=== PATIENT | female | born 1995 | race African-American/Black ===

== ENCOUNTER 2021-05-27 00:20 | Day surgery (SDC) | payer OTHER, SELFPAY ==
[2021-05-19 14:46] VITALS: BMI 38.0
--- NOTE | 2021-05-19 14:53 | PC.NURSE ---
Report to the Outpatient Waiting Room, entrance under the green pavilion located off [facility], at time 0600 on date 05/20/21. OR Time: 0730. - You and your visitor will be asked a series of questions to screen for COVID 19 for your protection. - A mask is required within the hospital. One visitor will be allowed to accompany the patient into the hospital. Patients visitor will be instructed to remain with patient at all times or leave the building. We will allow the visitor to come back to the postoperative area when patient is ready. Preoperative COVID Testing Requirements: No COVID Test needed if: (proof is required; if not received patient will have Rapid Test prior to entry) - Patient has received COVID Vaccine at least 14 days prior to procedure date or - Patient has positive COVID test result within last 90 days of surgery date. COVID Test needed if above criteria is not met Patients may have clear liquids (water, carbonated beverages, clear teas, apple juice) until 3 hours prior to surgery with a maximum of 20 ounces. - No food from midnight until time of surgery Take the following medications with a SIP of water the morning of surgery: NONE Medications to discontinue per physician: N/A Date to take last dose: N/A Please no make-up, nail sammarinese, hairspray, perfume, deodorant, or body powder the day of surgery. No jewelry (including any body piercings) or valuables the day of surgery, leave them at home. Please take a shower or bath the night before, or the morning of, surgery with an antibacterial soap. Wear comfortable, loose fitting clothing. - Jewelry must be removed prior to entering the operating room. Rings and piercings that are not removed may be cut off. - The hospital will not accept responsibility for valuables. - Please leave all valuables, including medications, at home the day of surgery. If you are going home after surgery, a licensed pole truck driver must drive you home. - NO public transportation without another adult. - We recommend that an adult stay with you for 24 hours following discharge. - We also recommend that you do not drive, make important decision, drink alcoholic beverages, or take any drugs that were not prescribed by your health care provider for at least 24 hours after your discharge time. Follow any additional instructions given to you from your surgeon. Telephone instructions given to LUIS SMITH and asked if any additional questions and then verbalized understanding. Patient advised to call surgeon office or pre surgery nurse liaison [phone] if any additional questions.
--- NOTE | 2021-05-20 06:32 | SUR.PREOP ---
CALLED PT, NO ANSWER, UNABLE TO LEAVE VM, MAILBOX NOT RECEIVING MESSAGES. PT TO BE HERE AT 0600 FOR 0730 CASE. CALLED PT'S MOTHER, KEHINDE, SHE HAS NO OTHER NUMBER FOR PT.
--- NOTE | 2021-05-25 10:57 | PC.NURSE ---
Report to the Outpatient Waiting Room, entrance under the green pavilion located off [facility], at time 0600 on date __05/27/21 . OR Time: __729 . - You and your visitor will be asked a series of questions to screen for COVID 19 for your protection. - A mask is required within the hospital. Preoperative COVID Testing Requirements: No COVID Test needed if: (proof is required; if not received patient will have Rapid Test prior to entry) - Patient has received COVID Vaccine at least 14 days prior to procedure date or - Patient has positive COVID test result within last 90 days of surgery date. COVID Test needed if above criteria is not met Patients may have clear liquids (water, carbonated beverages, clear teas, apple juice) until 3 hours prior to surgery with a maximum of 20 ounces. - No food from midnight until time of surgery Take the following medications with a SIP of water the morning of surgery: NONE Medications to discontinue per physician NONE Date to take last dose Please no make-up, nail georgian, hairspray, perfume, deodorant, or body powder the day of surgery. No jewelry (including any body piercings) or valuables the day of surgery, leave them at home. Please take a shower or bath the night before, or the morning of, surgery with an antibacterial soap. Wear comfortable, loose fitting clothing. Children are encouraged to wear pajamas. - Jewelry must be removed prior to entering the operating room. Rings and piercings that are not removed may be cut off. - The hospital will not accept responsibility for valuables. - Please leave all valuables, including medications, at home the day of surgery. If you are going home after surgery, a licensed warehouse associate driver must drive you home. - NO public transportation without another adult. - We recommend that an adult stay with you for 24 hours following discharge. - We also recommend that you do not drive, make important decision, drink alcoholic beverages, or take any drugs that were not prescribed by your health care provider for at least 24 hours after your discharge time. One visitor will be allowed to accompany the patient into the hospital. Patients visitor will be instructed to remain with patient at all times or leave the building. We will allow the visitor to come back to the postoperative area when patient is ready. Follow any additional instructions given to you from your surgeon. Telephone instructions given to __PATIENT and asked if any additional questions and then verbalized understanding. Patient advised to call surgeon office or pre surgery nurse liaison [phone] if any additional questions.
[2021-05-25 11:01] VITALS: BMI 38.0
--- NOTE | 2021-05-25 11:05 | PC.NURSE ---
PT STATES NO CHANGE IN HEALTH HX SINCE LAST INTERVIEW ON 05/19/21
--- NOTE | 2021-05-27 08:50 | P.HP_ITS ---
H&P: HPI History of Present Illness Date/Time: 05/27/21 08:50 Chief Complaint: retained POC Narrative: Eneida is a 25yo who had a medical at [facility] 6 weeks ago and has had heavy persistent vaginal bleeding since. US last week showed retained POC. She no showed a D and C last tuesday, but reported her bleeding has remained the same. [facility] Social History Social History Smoking status: Never smoker Additional smoking assessment comments: HOOKA Alcohol intake: current Drinks per week: 4 Substance use: former Substance use type: marijuana Last use: APR 11, 2021 SMOKED DAILY Living arrangements: alone Spiritual care concerns: No Meds Home Medications and Allergies Home Medications Medication Instructions Recorded Confirmed Type phentermine 37.5 mg PO DAILY 05/25/21 05/25/21 History Allergies Allergy/AdvReac Type Severity Reaction Status Date / Time No Known Allergies Allergy Unverified 05/25/21 10:51 Assessment and Plan Assessment and plan (1) Retained products of conception after induced termination of : Code(s): O07.4 - Failed attempted termination of without complication Status: Acute Assessment and Plan: D and C for retained POC after medical doxycycline IV Hgb was stable. Pt has been consented of RBA. will proceed.
--- NOTE | 2021-05-27 13:11 | WPDANESEPPF ---
Anes - Initial Pre Proc Eval Procedure: Operation Date: 05/27/21 14:30 Proposed Procedures p Suction Dilatation and Curettage - Elsie Finney MD Date/Time: 05/27/21 13:11 Surgeon: Elsie Finney MD Pre Op Diagnosis: retained products of conception Patient Data Age: 25 Gender: F Height: 1.73 m Weight: 113.4 kg Allergies Allergy/AdvReac Type Severity Reaction Status Date / Time No Known Allergies Allergy Verified 05/27/21 13:12 Home Medications Medication Instructions Recorded Confirmed Type phentermine 37.5 mg PO DAILY 05/25/21 05/25/21 History Patient hx anesthesia problems: none Family hx anesthesia problems: none Results Review: All pre-operative results and documents have been reviewed as part of the pre-operative evaluation. [facility] Social History Social History Smoking status: Never smoker Additional smoking assessment comments: MCKENNA Alcohol intake: current Drinks per week: 4 Substance use: former Substance use type: marijuana Last use: APR 11, 2021 SMOKED DAILY Living arrangements: alone Spiritual care concerns: No Anes - Eval Final PreProcedure Day of Procedure 05/27/21 13:11 Patient weight: obese Heart: regular rate and rhythm Lungs: clear to auscultation and normal air movement Airway: Mallampati scale class II Neurological: alert and oriented Last oral intake: >/= 8 hours ASA classification: II Emergent: no Anesthetic plan: proceed Anesthesia type and monitoring: general GIVS and standard monitoring Results Review: All pre-operative results and documents have been reviewed as part of the pre-operative evaluation. Informed Consent: The patient's anesthetic plan and its attendant risks and benefits were discussed with the patient/family/POA. Questions were solicited and answers provided to the satisfaction of the patient/family/POA.
[2021-05-27] MEDS: LACTATED RINGERS 1,000 ML 30 ML IV CONT (13:30)
[2021-05-27 13:36] VITALS: BP 100/50; PULSE 128; RESP 18; TEMP 36.5; O2SAT 100; BMI 36.8
[2021-05-27] MEDS: ACETAMINOPHEN 500 MG TABLET 1000 MG PO (13:40)
--- NOTE | 2021-05-27 13:48 | SUR.PREOP ---
1330; SPOKE TO DR HUMPHRIES, PT SMELLS OF MARIJUANA, HEAVILY, ALTHOUGH DENIES RECREATIONAL DRUG USE. HEART RATE 128, DR HUMPHRIES NOTIFIED. BP 100/50. PT STATES SHE IS NERVOUS. 1340; PT STATES SHE CANNOT GET HER VAGINAL PIERCING OUT. DOES NOT WANT TO SIGN JEWELRY WAIVER, WILL SPEAK TO DR LIN WHEN SHE ARRIVES
--- NOTE | 2021-05-27 14:35 | WPDHPUPDATE1 ---
History and Physical Update Update Date/Time: 05/27/21 14:35 History and Physical has been reviewed, including an updated exam of the patient. There are NO changes in the patient's condition. SInce last week when D and C was first scheduled, she has continued to have some days of no bleeding and some days of heavy bleeding. Risks, benefits, and alternatives have been discussed and questions answered. Patient agrees to proceed with procedure.
[2021-05-27] MEDS: DOXYCYCLINE 100 MG/NS 100 ML 100 MG/100 ML BAG IVPB (14:43)
--- NOTE | 2021-05-27 14:48 | SUR.PREOP ---
1435; DR LIN SPOKE TO . [facility] WAIVER SIGNED.
[2021-05-27] MEDS: BUPIVACAINE/EPINEPHRINE 0.25% 10 ML VIAL INFILTRATE (14:49)
--- NOTE | 2021-05-27 14:51 | SUR.PREOP ---
1440; NOTIFIED DR LIN OF PT'S SIGNING IDPH PAPER FOR HOME DISPOSITION
[2021-05-27] MEDS: METHYLERGONOVINE MALEATE 0.2 MG/ML VIAL IM (15:00)
--- NOTE | 2021-05-27 15:09 | W.PM.PROC2 ---
Procedure Note - Detailed Date of Procedure 05/27/21 Pre-op Diagnosis retained products of conception Post-op Diagnosis same Procedure Performed suction D and C Surgeon Elsie Finney MD Anesthesia MAC Description of Procedure The patient was taken to the OR and placed in supine position in dorsal lithotomy. She received MAC anesthesia and doxycycline. She was prepped and draped in normal fashion. A speculum was placed and the cervix was grasped with a single tooth tenaculum. A paracervical block was placed with 10cc 0.25% marcaine with epinephrine. The cervix was sequentially dilated to 8 mills. The suction was tested and then the suction catheter was inserted into the uterine cavity. Several passes were made until no further products of conception were obtained. The tenaculum was removed and hemostasis was obtained with pressure and monsel's solution. Small bleeding noted from the os, and methergine was given. The speculum was removed. The patient tolerated the procedure well and was taken to the recovery room in stable condition. Drains No Packing No Pathology yes Complications No immediate complications Condition stable Disposition same day
[2021-05-27 15:11] VITALS: BP 112/76; PULSE 86; RESP 16; O2SAT 98
[2021-05-27 15:40] VITALS: BP 131/83; PULSE 101; RESP 16; O2SAT 100
[2021-05-27 16:00] VITALS: BP 131/92; PULSE 89; RESP 16
== END 2021-05-27 16:16 | disposition home or self-care (01) ==
PROVIDERS: Visit Provider Obstetrics & Gynecology
PROC: (CPT 59812; principal; 2021-05-27 14:30)
DX: O07.4 Failed attempted termination of pregnancy without complication (principal)
CPT/HCPCS: 59812; 36415; 85461; 88305; A9270; J2001; J2210; J2250; J2405; J2704; J3010; J7120

== ENCOUNTER 2022-03-07 13:30 | Emergency (ER) | payer OTHER, SELFPAY ==
[2022-03-07 14:43] VITALS: BP 108/69; PULSE 78; RESP 18; TEMP 36.6; O2SAT 100
--- NOTE | 2022-03-07 15:22 | ED.FEMALEGU ---
HPI - Female Genitourinary General Chief complaint: Urogenital-Female Stated complaint: UTI Time Seen by Provider: 03/07/22 15:22 Source: patient Mode of arrival: ambulatory Limitations: no limitations History of Present Illness HPI Narrative: 26-year-old female presents with complaint lower abdominal pressure and distension, urinary frequency for 3 days. Afebrile. Intermittent dysuria. Denies nausea vomiting diarrhea. Reports this is her 1st urinary tract infection. No concern for . All systems reviewed and negative except as noted above. Related Data Home Medications Medication Instructions Recorded Confirmed Iud 03/07/22 Allergies Allergy/AdvReac Type Severity Reaction Status Date / Time No Known Allergies Allergy Verified 03/07/22 14:51 Review of Systems Review of Systems: CONSTITUTIONAL: Denies fever, chills, or sweats. EYES: Denies visual changes, redness, or discharge. ENT: Denies rhinorrhea, congestion, sore throat, or otalgia. CARDIOVASCULAR: Denies chest pain, palpitations, or edema. RESPIRATORY: Denies cough or dyspnea. GASTROINTESTINAL: Denies abdominal pain, nausea, vomiting, or diarrhea. GENITOURINARY: Reports dysuria, pressure and distention. Denies hematuria. SKIN: Denies rash or itching. MUSCULOSKELETAL: Denies back pain, joint pain, or myalgia. NEUROLOGIC: Denies headache, numbness, or weakness. PSYCHIATRIC: Denies anxiety or depression. All other systems reviewed are negative, except as documented in HPI. 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 There is no relevant family history pertinent to the presenting complaint. Exam Narrative: GENERAL: This is a well-nourished, well-developed patient, in no apparent distress. HEAD: normocephalic, atraumatic. EYES: PERRL. Sclera clear/white. Vision is grossly intact. EARS: External ears normal NOSE: External nose normal NECK: Neck supple, non-tender without lymphadenopathy, masses or thyromegaly. CARDIOVASCULAR: Regular rate and rhythm without murmurs, gallops, or rubs. RESPIRATORY: Clear to auscultation. Breath sounds equal bilaterally. No wheezes, rales, or rhonchi. SKIN: warm, Dry, intact with no suspicious lesions or rash, good texture and turgor. NEURO: awake, alert, and oriented to person, place and time. There were no obvious focal neurologic abnormalities. EXTREMITIES: No joint tenderness, effusion, or edema noted. Course Course Level of Care: Express Care Visit Vital Signs Vital signs: Vital Signs Temperature 36.6 C 03/07/22 14:43 Pulse Rate 78 03/07/22 14:43 Respiratory Rate 18 03/07/22 14:43 Blood Pressure 108/69 03/07/22 14:43 Pulse Oximetry 100 03/07/22 14:43 Oxygen Delivery Room Air 03/07/22 14:43 Temperature 36.6 C 03/07/22 14:43 Pulse Rate 78 03/07/22 14:43 Respiratory Rate 18 03/07/22 14:43 Blood Pressure 108/69 03/07/22 14:43 Pulse Oximetry 100 03/07/22 14:43 Oxygen Delivery Room Air 03/07/22 14:43 reviewed MDM - Female Genitourinary MDM Narrative Medical decision making narrative: Patient is awar
== END 2022-03-07 15:34 | disposition home or self-care (01) ==
PROVIDERS: Emergency Provider Nurse Practitioner Family
DX: N39.0 Urinary tract infection, site not specified (principal)
CPT/HCPCS: 81003; 87077; 87086; 87186; 99213; G0463

== ENCOUNTER 2024-04-11 03:24 | Inpatient (IN) | payer OTHER, SELFPAY ==
[2024-04-11] VITALS (71 sets, daily range): BP systolic 95–145; BP diastolic 58–99; PULSE 83–119; RESP 18; TEMP 36.8–36.9; O2SAT 97–100; BMI 45.2
[2024-04-11] MEDS: LACTATED RINGERS 1,000 ML 500 ML IV CONT (03:50)
[2024-04-11] MEDS: BETAMETHASONE SOD PHOS/ACETATE 30 MG/5 ML VIAL 12 MG IM (04:01)
[2024-04-11] MEDS: LACTATED RINGERS 1,000 ML 75 ML IV CONT (04:11)
[2024-04-11] MEDS: MAGNESIUM SULF 6 GM/WATER150ML 6 GM/150 ML BAG IVPB (04:11)
[2024-04-11] MEDS: LACTATED RINGERS 1,000 ML 125 ML IV CONT (04:30)
[2024-04-11] MEDS: AMPICILLIN 2 GM/NS 100 ML 2 GM/100 ML BAG IVPB (04:35)
--- NOTE | 2024-04-11 04:39 | P.HP_ITS ---
H&P: HPI History of Present Illness Date/Time: 04/11/24 04:39 Chief Complaint: labor Narrative: Patient is a 28 year old at 25w2d who presents for labor after transfer from outside hospital. She reports contractions starting at 1900 tonight, no inciting factors. She then reports leakage of fluid while being evaluated in the ER around midnight. She denies vaginal bleeding. She reports de creased movement. Per outside hospital report, she was not dilated prior to transfer. On admission, FHR was category II with recurrent variable decelerations. SVE 3.5cm dilated. RomPlus negative however oligohydramnios noted on bedside ultrasound. Cephalic presentation. Her has been complicated by possible CPAM, found on US at 24 weeks. 2.5x2.5x2.4cm cystic formation in the left lung/thorax visualized. Referral to [facility] sent however patient has not yet attending. No hx of delivery/labor. Review of Systems Review of Systems: All systems reviewed & are unremarkable except as noted in HPI and below PMFSH Past Medical History Medical History Encounter for removal of intrauterine contraceptive device Surgical History Surgical History H/O dilation and curettage 2 Family History Family History Mother Hypertension Grandparent Lung cancer Social History Social History Smoking status: Never smoker Additional smoking assessment comments: HOOKA Alcohol intake: current Drinks per week: 4 Substance use: former Substance use type: marijuana Last use: APR 11, 2021 SMOKED DAILY Do You Feel Safe in your Home?: Yes Lack of Transportation: No Lack of Food: Never True Current Housing: I Have Housing Concerned About Future Housing: No Difficulty Paying Gas/Electric Bills: No Difficulty Paying for Meds: No Currently Unemployed: YES Education: High School Diploma/GED Difficulty w/ Childcare or Family Care: YES Living arrangements: with family Occupation/Education: unemployed Gender identity (if verbalized by the patient): Female Sexual Orientation (if Verbalized by the Patient): Straight or Heterosexual Spiritual care concerns: No Meds Home Medications and Allergies Home Medications ?Medication ?Instructions ?Recorded ?Confirmed ?Type acyclovir 400 mg tablet 400 mg PO TID 5 days #15 tabs 12/27/23 12/27/23 Rx metronidazole 500 mg tablet 500 mg PO Q12H #14 tabs 12/27/23 12/27/23 Rx docosahexaenoic acid 200 mg 200 mg PO DAILY #90 caps 12/29/23 12/29/23 Rx capsule ( DHA) Allergies Allergy/AdvReac Type Severity Reaction Status Date / Time No Known Allergies Allergy Verified 12/27/23 11:08 Vital Signs Vital Signs - 24 hr 04/11/24 03:35 04/11/24 03:36 04/11/24 03:40 Pulse Rate 87 Blood Pressure 124/79 Pulse Oximetry 100 100 04/11/24 03:45 04/11/24 03:50 04/11/24 03:55 Pulse Rate Blood Pressure Pulse Oximetry 100 100 100 04/11/24 04:00 04/11/24 04:02 04/11/24 04:12 Pulse Rate 103 H Blood Pressure 145/99 H Pulse Oximetry 99 100 04/11/24 04:16 04/11/24 04:17 04/11/24 04:22 Pulse Rate 98 Blood Pressure 131/74 Pulse Oximetry 100 97 04/11/24 04:27 04/11/24 04:32 04/11/24 04:37 Pulse Rate Blood Pressure Pulse Oximetry 99 99 100 Exam Const: General: in distress moderate (with contractions) HENMT: Mouth: Yes moist mucous membranes Eyes: General: appearance normal, both eyes and all related structures Resp: Effort & Inspection: normal respiratory effort Cardio: Rate: regular rate GI: GI Palp: Yes Soft to palpation and No Tenderness to palpation present (GI) : Other: SVE 3.5cm > 5cm > 6cm in 1 hour since arrival Leakage of clear fluid Urinary Catheter: Urinary Catheter: patent and draining Skin: General skin exam: normal color Extrem: General: normal to inspection Psych: Mental Status: mental status grossly normal Assessment and Plan Assessment and plan (1) labor: Code(s): O60.00 - labor without delivery, unspecified trimester Status: Acute Assessment and Plan: - patient reports contractions starting at 7pm - SVE closed per outside report > 3.5cm > 5cm > 6cm in 1 hour since arrival - IV fluid bolus initiated - MgSO4 for neuroprotection - ampicillin for GBS unknown status - anticipate vaginal delivery; chef broiler or fry at bedside (2) premature rupture of membranes (PPROM) with onset of labor after 24 hours of rupture in second trimester, antepartum: Code(s): O42.112 - premature rupture of membranes, onset of labor more than 24 hours following rupture, second trimester Status: Acute Assessment and Plan: - anhydramnios visualized on BSUS - ROMPlus negative, however continues to have leakage of clear fluid (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
[2024-04-11] MEDS: MAGNESIUM SULF 20GM/WATER500ML 500 ML 50 MG IV CONT (05:03)
--- NOTE | 2024-04-11 05:16 | WPDANESEPP ---
Anes - Eval Pre Procedure Procedure: labor epidural Date/Time: 04/11/24 05:16 Surgeon: janeen Preop Diagnosis: pain during labor Pre Op Diagnosis: Cx, Abd pain Patient Data Age: 28 Gender: F Height: 1.71 m Weight: 133 kg Last Vital Signs Pulse 119 H 04/11/24 04:56 BP 95/73 L 04/11/24 04:56 Pulse Ox 100 04/11/24 05:12 O2 Del Method Room Air 04/11/24 04:27 Allergies Allergy/AdvReac Type Severity Reaction Status Date / Time No Known Allergies Allergy Verified 12/27/23 11:08 Home Medications ?Medication ?Instructions ?Recorded ?Confirmed ?Type acyclovir 400 mg tablet 400 mg PO TID 5 days #15 tabs 12/27/23 12/27/23 Rx metronidazole 500 mg tablet 500 mg PO Q12H #14 tabs 12/27/23 12/27/23 Rx docosahexaenoic acid 200 mg 200 mg PO DAILY #90 caps 12/29/23 12/29/23 Rx capsule ( DHA) Patient hx anesthesia problems: none Family hx anesthesia problems: none Results Review: All pre-operative results and documents have been reviewed as part of the pre-operative evaluation. [facility] Past Medical History Medical History (Updated 04/11/24 @ 05:17 by Bambi Quevedo CRNA) Morbid obesity IUP (intrauterine ), incidental Encounter for removal of intrauterine contraceptive device Surgical History Surgical History H/O dilation and curettage 2 Family History Family History Mother Hypertension Grandparent Lung cancer Social History Social History Smoking status: Never smoker Additional smoking assessment comments: HOOKA Alcohol intake: current Drinks per week: 4 Substance use: former Substance use type: marijuana Last use: APR 11, 2021 SMOKED DAILY Do You Feel Safe in your Home?: Yes Lack of Transportation: No Lack of Food: Never True Current Housing: I Have Housing Concerned About Future Housing: No Difficulty Paying Gas/Electric Bills: No Difficulty Paying for Meds: No Currently Unemployed: No Education: High School Diploma/GED Difficulty w/ Childcare or Family Care: No Living arrangements: with family Occupation/Education: unemployed Gender identity (if verbalized by the patient): Female Sexual Orientation (if Verbalized by the Patient): Straight or Heterosexual Spiritual care concerns: No Exam Day of Procedure 04/11/24 05:16
--- NOTE | 2024-04-11 06:24 | PM.TDS ---
Transfer Discharge Sum: Prov Provider Date of admission: 04/11/24 03:24 Primary care physician: INTERNET SPECIALIST PHYSICIAN Admitting clinician: Edmond Montoya MD Consults: 04/11/24 05:59 Consult to Anesthesiology Routine Reason for consultation: Epidural Has provider been notified: Yes Attending physician on discharge: Edmond Mnotoya Discharging clinician: Edmond Montoya Anticipated date of transfer: 04/11/24 Receiving physician/facility: [facility]; report given to Dr. 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 cystic lung Status: Acute (3) labor: Code(s): O60.00 - labor without delivery, unspecified trimester Status: Acute Transfer Discharge Sum: Med Medications Active and Home Medications: Home Medications acyclovir 400 mg tablet 400 mg PO TID 5 days #15 tabs 12/27/23 [Rx Confirmed 12/27/23] metronidazole 500 mg tablet 500 mg PO Q12H #14 tabs 12/27/23 [Rx Confirmed 12/27/23] docosahexaenoic acid 200 mg capsule ( DHA) 200 mg PO DAILY #90 caps 12/29/23 [Rx Confirmed 12/29/23] Active Medications Fentanyl Citrate (Fentanyl Citrate Inj (*Crx) 100 Mcg/2 Ml Vial) 50 mcg IV PUSH Q1H PRN PRN Reason: Pain Rated 5 or Less Fentanyl Citrate (Fentanyl Citrate Inj (*Crx) 100 Mcg/2 Ml Vial) 100 mcg IV PUSH Q1H PRN PRN Reason: Pain Rated 6 or Greater Magnesium Sulfate (Magnesium Sulf 20gm/[id number]) 500 mls @ 50 mls/hr IV CONT .Q10H ZANDER Lactated Ringer's (Lr - Lactated Ringers Iv) 1,000 mls @ 125 mls/hr IV CONT .Q8H ZANDER Oxytocin/Sodium Chloride (Oxytocin 30 Units/Ns 500 Ml) 30 units in 500 mls @ 999 mls/hr IV CONT .Q31M PRN PRN Reason: if not received in labor Oxytocin/Sodium Chloride (Oxytocin 30 Units/Ns 500 Ml) 30 units in 500 mls @ 125 mls/hr IV CONT .Q4H PRN PRN Reason: if not received in labor Lactated Ringer's (Lr - Lactated Ringers Iv) 500 mls @ 999 mls/hr IV CONT .Q31M PRN PRN Reason: see Label Comments Ampicillin Sodium (Ampicillin 2 Gm/Ns 100 Ml) 2 gm in 100 mls @ 200 mls/hr IVPB ONCE ONE Stop: 04/11/24 06:28 Last Admin: 04/11/24 04:35 Dose: 200 mls/hr Ampicillin Sodium (Ampicillin 1 Gm/Ns 50 Ml) 1 gm in 50 mls @ 100 mls/hr IVPB Q4H ZANDER Magnesium Sulfate (Magnesium Sulf 6 Gm/[id number]) 6 gm in 150 mls @ 300 mls/hr IVPB ONCE ONE Stop: 04/11/24 06:50 Naloxone HCl (Naloxone Hcl 0.4 Mg/Ml Vial) 0.1 mg IV PUSH Q2M PRN PRN Reason: Respiratory rate less than 10 Ondansetron HCl (Ondansetron Inj 4 Mg/2 Ml Vial) 4 mg IV PUSH Q6H PRN PRN Reason: Nausea And Vomiting Terbutaline Sulfate (Terbutaline Sulfate 1 Mg/Ml Vial) 0.25 mg SUB-Q PRN PRN PRN Reason: Tachystole Transfer Discharge Sum: Hosp Hospital Course Hospital course: Patient is a 28 year old at 25w2d who presents for labor after transfer from outside hospital. She reports contractions starting at 1900 tonight, no inciting factors. She then reports leakage of fluid while being evaluated in the ER around midnight. She denies vaginal bleeding. She reports decreased movement. Per outside hospital report, she was not dilated prior to transfer. On admission, FHR was category II with recurrent variable decelerations. SVE 3.5cm dilated. RomPlus negative however oligohydramnios noted on bedside ultrasound. Cephalic presentation. Her has been complicated by possible CPAM, found on US at 24 weeks. 2.5x2.5x2.4cm cystic formation in the left lung/thorax visualized. Referral to [facility] sent however patient has not yet attending. No hx of delivery/labor. After starting MgSO4 for neuroprotection and IV fluids, contractions improved, with rare mild contractions palpated. FHR was reassuring, category I. No vaginal bleeding. SVE 5cm after epidural and unchanged x2 hours. Discussed transfer with Dr. Irvin of [facility], who accepts transfer. Patient updated. Time Spent with Patient Time attestation: Total time spent providing and/or coordinating transfer services: Exam Const: General: in distress moderate (with contractions) HENMT: Mouth: Yes moist mucous membranes Eyes: General: appearance normal, both eyes and all related structures Resp: Effort & Inspection: normal respiratory effort Cardio: Rate: regular rate GI: GI Palp: Yes Soft to palpation and No Tenderness to palpation present (GI) : Other: SVE 3.5cm > 5cm > 5cm (unchanged x2 hours) Leakage of clear fluid Urinary Catheter: Urinary Catheter: patent and draining Skin: General skin exam: normal color Extrem: General: normal to inspection Psych: Mental Status: mental status grossly normal
== END 2024-04-11 08:10 | disposition short-term general hospital (02) | DRG 566 ==
PROVIDERS: Admitting Provider Obstetrics & Gynecology; Visit Provider Obstetrics & Gynecology
DX: O60.02 Preterm labor without delivery, second trimester (principal); O41.02X0 Oligohydramnios, second trimester, not applicable or unspecified; O36.8320 Maternal care for abnormalities of the fetal heart rate or rhythm, second trimester, not applicable or unspecified; O42.912 Preterm premature rupture of membranes, unspecified as to length of time between rupture and onset of labor, second trimester; Q33.0 Congenital cystic lung; Z3A.25 25 weeks gestation of pregnancy
CPT/HCPCS: J0290; J0702; J2795; J3475; J7120

== ENCOUNTER 2024-10-08 01:01 | Day surgery (SDC) | payer OTHER, SELFPAY ==
--- NOTE | 2024-10-03 15:16 | PC.NURSE ---
Report to the Outpatient Waiting Room, entrance under the green pavilion located off [facility], at time __1200_NOON____ on date __10/08/24 . Planned Procedure Time: __2:00PM .? Time changes happen often and if your time is changed the preop area will call you the afternoon before. - You and your visitor will be asked to self-screen and do not enter if you have any COVID symptoms. Please call surgeon if you need to reschedule. - A mask is optional within the hospital at this time. Patients may have clear liquids (water, carbonated beverages, clear teas, apple juice) until 3 hours prior to surgery ( 11AM) with a maximum of 20 ounces. - No food from midnight until time of surgery and no smoking, or chewing tobacco (or any form of nicotine). No chewing gum, candy or mints. - Take only the following medications with a SIP of water on the morning of surgery: NONE DO NOT STOP ANY OF YOUR OTHER PRESCRIPTION MEDICATIONS PRIOR TO SURGERY EXCEPT THE FOLLOWING Hold all vitamins and supplements for 3 days per anesthesiologist. Medications to discontinue per physician NONE Date to take last dose Please no make-up, nail uzbek, hairspray, perfume, deodorant, or body powder the day of surgery.? No jewelry (including any body piercings) or valuables the day of surgery, leave them at home.? Please take a shower or bath the night before, or the morning of, surgery with an antibacterial soap.? Wear comfortable, loose fitting clothing.? Children are encouraged to wear pajamas. - Jewelry must be removed prior to entering the operating room.? Rings and piercings that are not removed may be cut off. - The hospital will not accept responsibility for valuables.? - Please leave all valuables, including medications, at home the day of surgery. If you are going home after surgery, a licensed dolly driver must drive you home.? - NO public transportation without another adult if you receive anesthesia. - We recommend that an adult stay with you for 24 hours following discharge. - We also recommend that you do not drive, make important decision, drink alcoholic beverages, or take any drugs that were not prescribed by your health care provider for at least 24 hours after your discharge time. For Pediatric surgeries, we recommend two adults accompany the child home. Follow any additional instructions given to you from your surgeon. Telephone instructions given to __PATIENT and asked if any additional questions and then verbalized understanding. Patient advised to call surgeon office or pre surgery nurse liaison [phone] if any additional questions.
[2024-10-03 15:17] VITALS: BMI 41.1
[2024-10-08] VITALS (8 sets, daily range): BP systolic 109–132; BP diastolic 66–93; PULSE 69–89; RESP 14–22; TEMP 36.1–36.6; O2SAT 93–100
--- OUTSIDE RECORDS SUMMARY | 2024-10-08 01:04 | XMS_ITS | Continuity of Care Document ---
Author Organization [facility] Address [address] [place] [address] Phone Care Team Providers Care Road Hogger Operator Name Role Phone Eric Betts DDS Unavailable Unavailable Procedures Procedure Date Limit oral eval problem focused 013 Periapical Radiographic, first Image Dec Extraction erupted tooth or exposed root Advance Directives Directive Yes / No Effective Date File Name No Information Encounters Encounter Description Practice Location Reason(s) For Visit Diagnoses Date Provider Providers Copied on Encounter [facility] , [address], [place], [place], [id number], tel:[phone] [facility] Alpesh Reyes. [address], [place], [place], [id number], [place]. tel:[phone] Family History Family Member Type Diagnosis Age At Onset No Information Payers Payer name Insurance type Covered alliance party ID Authoriza tion(s) No Information Social History Type Description Quantity Date Captured Comments Sex Female Smoking Status No Information Chief Complaint And Reason For Visit No Information Reason For Referral Reason For Referral No Information History Of Present Illness Encounter Date Complaint History Of Prese nt Illness No Information Functional Status Date Functional Assessmen t No Information Instructions Date Instruction Additional Infor mation No Information Assessments Type Assessment Date No Information Patient Care Teams Name Effective Dates (start - stop) Status Members No Information
--- OUTSIDE RECORDS SUMMARY | 2024-10-08 01:04 | XMS_ITS | Data Portability ---
Author Organization [place] [facility] Address [address] [facility] [place] [address] Care Team Providers Care Plant Operations Engineer Name Role Phone DUY CONTRERAS Attending Ambulatory Care [phone] Assessment No assessment recorded. Plan of Treatment Reminders Order Date Submit Date Provider Last Modified By Organization Details Last Modified Time Details Appointments None recorded. Lab HbA1c (hemoglob in A1c), blood 2016 017 [facility], [address] [place] [address], [address], [place], [address], 7 06:06:02 CMP, serum or plasma 2016 017 [facility], [address] [place] [address], [address], [place], [address], 7 06:06:01 prolactin , serum 2016 017 [facility], [address] [place] [address], [address], [place], [address], 7 06:06:03 lipid panel, serum 2016 017 [facility], [address] [place] [address], [address], [place], [address], 7 06:06:01 dhea-sulf ate, serum 2016 017 [facility], [address] [facility], [address], [place], [address], 7 06:06:03 testoster one, free + total, serum 2016 [facility], [address] [facility], [address], [place], [address], 7 06:06:02 TSH + free T4, serum 2016 [facility], [address] [place] [address], [address], [place], [address], 7 06:06:00 bacterial vaginosis + vaginitis panel, vaginal 2016 [facility], [address], [place], [address], 7 09:19:10 HSV (1+2) DNA, qual, PCR, unspecifi ed specimen 2016 [facility], [address], [place], [address], 7 09:19:13 culture, vaginal/r ectal, streptoco ccus group B 2016 [facility], [address], [place], [address], 7 09:19:16 urinalysi s, dipstick 2016 khari In-Office Order, Internal Use Only DO Not Attach Compendium DO Not Attach Compendium, Do Not Delete/merge, [id number] 7 14:03:26 test, urine 2016 khari In-Office Order, Internal Use Only DO Not Attach Compendium DO Not Attach Compendium, Do Not Delete/merge, [id number] 7 14:03:26 Referral dermatolo gist referral - Please call patient to schedule appt. Thank you DONE 9 2018 019 [email or web address] Not available 9 09:26:49 Procedures None recorded. Surgeries None recorded. Imaging None recorded. Medication Orders Elidel 1 % topical cream 2019 020 INTERFACE Not available 0 12:31:06 clobetaso l 0.05 % topical cream 2019 020 INTERFACE Not available 0 12:31:05 cephalexi n 500 mg capsule 2019 020 INTERFACE Not available 0 12:31:08 clobetaso l 0.05 % topical ointment 2018 019 nspiller Not available 9 14:39:53 Elidel 1 % topical cream 2018 019 nspiller Not available 9 14:39:53 cephalexi n 500 mg capsule 2018 [id number], [address] [facility], [place], [place], [id number], 9 14:10:02 fluocinol one 0.025 % topical ointment 2018 019 [facility], [address] [facility], [place], [place], [id number], 9 14:42:37 acyclovir 800 mg tablet 2016 017 [facility], [address] [facility], [place], [place], [id number], 9 14:20:56 Adult Low Dose Aspirin 81 mg tablet,de layed release 2016 017 [email or web address] [facility] #88690, [address], [place], [place], [id number], 9 14:20:59 Prometriu m 200 mg capsule 2016 017 alconer1 [facility] #58022, [address], [place], [place], [id number], 9 14:21:35 metronida zole 500 mg tablet [email or web address] [facility] #83524, [address], [place], [place], [id number], 9 14:21:07 calcium 600 mg (as carbonate )-vitamin D3 20 mcg (800 unit) tablet [address] [facility]23635, [address], [place], [place], [id number], 9 14:21:02 Vitamin tablet [address] [facility]00114, [address], [place], [place], [id number], 9 14:21:11 Patient TargetsNo targets recorded. Patient Instructions Encounter Date Encounter Id Patient Instructions Last Modified By Organization Details Last Modified Time 01/17/2017 [id number] genital herpes: care instructions Not available 01/17/2017 13:56:29 bacterial vaginosis: care instructions Not available 01/17/2017 13:56:29 vaginal yeast infection: care instructions [email or web address] Not available 01/17/2017 14:03:26 learning about mood disorders [email or web address] Not available 01/17/2017 14:53:21 08/02/2018 [id number] Recommend fragrance free soaps, lotions, and detergents. nspiller Not available 08/02/2018 16:33:15 10/17/2018 [id number] A healthy lifestyle: care instructions Not available 10/17/2018 15:55:06 I have reviewed the provider's note and I agree with the documented assessment and plan. HLF [email or web address] Not available 10/19/2018 14:21:53 04/04/2019 [id number] Advised patient to avoid chemical use and to use fragrance free soaps and lotions. 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 Thank you DONE 05/31/2018 TH Referring Physician: Rivera Eduardo, Internal Medicine, Encounter Date: 05/05/2018 Results Created Date Observation Date Name Description Value Unit Range Abnormal Flag Note LastModifiedBy Organization Detail LastModifiedTime 01/18/20 17 01/17/2017 pregn anthony test, urine HCG negati ve Not Available In-Office Order Internal Use Only DO Not Attach Compendium DO Not Attach Compendium, Do Not Delete/merge, [id number] 01/17/2017 13:21:37 01/18/2001/17/2017 urina lysis , dipst ick Leukocytes Negati ve Not Available In-Office Order Internal Use Only DO Not Attach Compendium DO Not Attach Compendium, Do Not Delete/merge, 01/17/2017 13:20:54 01/18/2001/17/2017 urina lysis , dipst ick Nitrite negati ve Not Available In-Office Order Internal Use Only DO Not Attach Compendium DO Not Attach Compendium, Do Not Delete/merge, [id number] 01/17/2017 13:20:54 01/18/2001/17/2017 urina lysis , dipst ick Urobilinogen 1 Not Available In-Of fice Order Internal Use Only DO Not Attach Compendium DO Not Attach Compendium, Do Not Delete/merge, 01/17/2017 13:20:54 01/18/20 17 01/17/2017 urina lysis , dipst ick Protein Negati ve Not Available In-Office Order Internal Use Only DO Not Attach Compendium DO Not Attach Compendium, Do Not Delete/merge, [id number] 01/17/2017 13:20:54 01/18/2001/1701/17/2017 urina lysis , dipst ick pH 6.5 Not Available In-Office Order Internal Use Only DO Not Attach Compendium DO Not Attach Compendium, Do Not Delete/merge, [id number] 01/17/2017 13:20:54 01/18/20 17 01/17/2017 urina lysis , dipst ick Blood Negati ve Not Available In-Office Order Internal Use Only DO Not Attach Compendium DO Not Attach Compendium, Do Not Delete/merge, [id number] 01/17/2017 13:20:54 01/18/20 17 01/17/2017 urina lysis , dipst ick Specific [place] 1.020 Not Available In-Off ice Order Internal Use Only DO Not Attach Compendium DO Not Attach Compendium, Do Not Delete/merge, [id number] 01/17/2017 13:20:54 01/18/20 17 01/17/2017 urina lysis , dipst ick Ketone Negati ve Not Available In-Office Order Internal Use Only DO Not Attach Compendium DO Not Attach Compendium, Do Not Delete/merge, [id number] 01/17/2017 13:20:54 01/18/20 17 01/17/2017 urina lysis , dipst ick Bilirubin Negati ve Not Available In-Office Order Internal Use Only DO Not Attach Compendium DO Not Attach Compendium, Do Not Delete/merge, [id number] 01/17/2017 13:20:54 01/18/20 17 01/17/2017 urina lysis , dipst ick Glucose Negati ve Not Available In-Office Order Internal Use Only DO Not Attach Compendium DO Not Attach Compendium, Do Not Delete/merge, [id number] 01/17/2017 13:20:54 01/18/20 17 01/18/2017 TSH + free T4, serum TSH 1.030 uIU/m L 0.450- 4.500 Not Available [facility] ([facility]) [address] [facility], [place], [address], 01/19/2017 06:06:00 01/18/20 17 01/18/2017 TSH + free T4, serum T4,free(dire ct) 1.12 NG/dL 0.82-1 .77 Not Available [facility] ([facility]) [address] [facility] [place], [address], 01/19/2017 06:06:00 01/18/20 17 01/18/2017 CMP, serum or plasm a glucose, serum 95 mg/dL 65-99 Not Available [facility] ([facility]) [address] [facility] [place], [address], 01/19/2017 06:06:01 01/18/2001/18/2017 CMP, serum or plasm a BUN 13 mg/dL 6-20 Not Available [facility] ([facility]) [address] [facility] [place], [address], 01/19/2017 06:06:01 01/18/2001/18/2017 CMP, serum or plasm a creatinine, serum 1.06 mg/dL 0.57-1 .00 above high normal Not Available [facility] ([facility]) [address] [facility] [place], [address], 01/19/2017 06:06:01 01/18/2001/18/2017 CMP, serum or plasm a eGFR if nonafricn AM 75 mL/mi n/1.7 3 >59 Not Available [facility] ([facility]) [address] [facility] [place], [address], 01/19/2017 06:06:01 01/18/2001/18/2017 CMP, serum or plasm a eGFR if africn AM 86 mL/mi n/1.7 3 >59 Not Available [facility] ([facility]) [address] [facility] [place], [address], 01/19/2017 06:06:01 01/18/2001/18/2017 CMP, serum or plasm a BUN/creatini ne ratio 12 9-23 Not Available [facility] ([facility]) [address] [facility] [place], [address], 01/19/2017 06:06:01 01/18/20 01/18/2017 CMP, serum or plasm a sodium, serum 142 mmol/ L 134-14 4 Not Available [facility] ([facility]) [address] [place], [address], 01/19/2017 06:06:01 01/18/20 17 01/18/2017 CMP, serum or plasm a potassium, serum 4.2 mmol/ L 3.5-5. 2 Not Available [facility] ([facility]) [address] [place], [address], 01/19/2017 06:06:01 01/18/2001/18/2017 CMP, serum or plasm a chloride, serum 103 mmol/ L 96-106 Not Available [facility] ([facility]) [address] [place], [address], 01/19/2017 06:06:01 01/18/2001/18/2017 CMP, serum or plasm a carbon dioxide, total 24 mmol/ L 18-29 Not Available [facility] ([facility]) [address] [place] [address], [address], 01/19/2017 06:06:01 01/18/20 17 01/18/2017 CMP, serum or plasm a calcium, serum 9.0 mg/dL 8.7-10 .2 Not Available [facility] ([facility]) [address] [place], [address], 01/19/2017 06:06:01 01/18/2001/18/2017 CMP, serum or plasm a protein, total, serum 7.2 g/dL 6.0-8. 5 Not Available [facility] ([facility]) [address] [place], [address], 01/19/2017 06:06:01 01/18/20 17 01/18/2017 CMP, serum or plasm a albumin, serum 4.1 g/dL 3.5-5. 5 Not Available [facility] ([facility]) [address] [place], [address], 01/19/2017 06:06:01 01/18/2001/18/2017 CMP, serum or plasm a globulin, total 3.1 g/dL 1.5-4. 5 Not Available [facility] ([facility]) [address] [facility] [place], [address], 01/19/2017 06:06:01 01/18/2001/18/2017 CMP, serum or plasm a A/G ratio 1.3 1.2-2. 2 Not Available [facility] ([facility]) [address] [facility] [place], [address], 01/19/2017 06:06:01 01/18/2001/18/2017 CMP, serum or plasm a bilirubin, total <0.2 mg/dL 0.0-1. 2 Not Available [facility] ([facility]) [address] [facility] [place], [address], 01/19/2017 06:06:01 01/18/2001/18/2017 CMP, serum or plasm a alkaline phosphatase, S 64 IU/L 39-117 Not Available [facility] ([facility]) [address] [facility], [place], [address], 01/19/2017 06:06:01 01/18/2001/18/2017 CMP, serum or plasm a AST (SGOT) 13 IU/L 0-40 Not Available [facility] ([facility]) [address] [facility] [place], [address], 01/19/2017 06:06:01 01/18/2001/18/2017 CMP, serum or plasm a ALT (SGPT) 11 IU/L 0-32 Not Available [facility] ([facility]) [address] [place] [address] [place], [address], 01/19/2017 06:06:01 01/18/2001/18/2017 lipid panel , serum cholesterol, total 159 mg/dL 100-19 9 Not Available [facility] ([facility]) [address] [place], [address], 01/19/2017 06:06:01 01/18/20 17 01/18/2017 lipid panel , serum triglyceride s 108 mg/dL 0-149 Not Available [facility] ([facility]) [address] [place], [address], 01/19/2017 06:06:01 01/18/2001/18/2017 lipid panel , serum HDL cholesterol 66 mg/dL >39 Not Available [facility]) [address] [facility], [place], [address], 01/19/2017 06:06:01 01/18/20 17 01/18/2017 lipid panel , serum VLDL cholesterol walter 22 mg/dL 5-40 Not Available [facility] ([facility]) [address] [facility], [place], [address], 01/19/2017 06:06:01 01/18/2001/18/2017 lipid panel , serum LDL cholesterol calc 71 mg/dL 0-99 Not Available [facility] ([facility]) [address] [place], [address], 01/19/2017 06:06:01 01/18/2001/18/2017 lipid panel , serum comment: STOCK PATCHER Not Available [facility] ([facility]) [address] [place], [address], 01/19/2017 06:06:01 01/18/20 17 01/18/2017 lipid panel , serum LDL/HDL ratio 1.1 ratio _unit s 0.0-3. 2 LDL/H DL Ratio Men Women 1/2 Avg.R isk 1.0 1.5 Avg.R isk 3.6 3.2 2X Avg.R isk 6.2 5.0 3X Avg.R isk 8.0 6.1 Not Available [facility] ([facility]) [address] [place], [address], 01/19/2017 06:06:01 01/18/20 17 01/18/2017 testo stero ne, free + total , serum testosterone , serum 65 NG/dL 8-48 above high normal Not Available [facility] ([facility]) [address] [place], [address], 01/19/2017 06:06:02 01/18/20 17 01/18/2017 testo stero ne, free + total , serum free testosterone (direct) 2.5 pg/mL 0.0-4. 2 Not Available [facility] ([facility]) [address] [place], [address], 01/19/2017 06:06:02 01/18/20 17 01/18/2017 HbA1c (hemo globi n A1c), blood hemoglobin A1C 5.4 % 4.8-5. 6 Pre-d iabet es: 5.7 - 6.4 Diabe karen: >6.4 Glyce nick contr ol for adult s with diabe karen: <7.0 Not Available [facility] ([facility]) [address] [place], [address], 01/19/2017 06:06:02 01/18/20 17 01/18/2017 dhea- sulfa te, serum DHEA-sulfate 475.1 ug/dL 110.0- 431.7 above high normal Not Available [facility] ([facility]) [address] [place], [address], 01/19/2017 06:06:03 01/18/20 17 01/18/2017 prola ctin, serum prolactin 19.9 NG/mL 4.8-23 .3 Not Available [facility] ([facility]) [address] [place], [address], 01/19/2017 06:06:03 01/18/20 17 01/19/2017 bacte rial vagin osis + vagin itis panel , vagin al trich vag by CATHIE Negati ve negati ve Not Available [facility] ([facility]) [address] [place], [address], 01/21/2017 09:19:10 01/18/20 17 01/20/2017 bacte rial vagin osis + vagin itis panel , vagin al atopobium vaginae High - 2 score abnormal Not Available [facility] ([facility]) [address] [place], [address], 01/21/2017 09:19:10 01/18/20 17 01/20/2017 bacte rial vagin osis + vagin itis panel , vagin al bvab 2 High - 2 score abnormal Not Available [facility] ([facility]) [address] [place], [address], 01/21/2017 09:19:10 01/18/20 17 01/20/2017 bacte rial vagin osis + vagin itis panel , vagin al megasphaera 1 High - 2 score abnormal Calcu late total score by qamar rivera the 3 indiv idual bacte rial vagin osis (BV) marke r score s toget her. Total score is inter prete d as follo ws: Total score 0-1: Indic ates the absen ce of BV. Total score 2: Indet ermin ate for BV. Addit ional clini walter data shoul d be evalu ated to estab suzy a diagn osis. Total score 3-6: Indic ates the prese nce of BV. This test was devel oped and its perfo rmanc e marcelo cteri stics deter mined by [facility]. It has not been clear ed or appro omero by the Food and Drug Admin istra tion. The FDA has deter mined that such clear ance or appro flex is not neces priyanka. Not Available [facility] ([facility]) [address] [place], [address], 01/21/2017 09:19:10 01/18/20 17 01/20/2017 bacte rial vagin osis + vagin itis panel , vagin al andrea albicans, CATHIE Negati ve negati ve Not Available [facility] ([facility]) [address] [place], [address], 01/21/2017 09:19:10 01/18/2001/20/2017 bacte rial vagin osis + vagin itis panel , vagin al andrea glabrata, CATHIE Negati ve negati ve This test was devel oped and its perfo rmanc e marcelo cteri stics deter mined by [facility]. It has not been clear ed or appro omero by the Food and Drug Admin istra tion. The FDA has deter mined that such clear ance or appro flex is not neces priyanka. Not Available [facility] ([facility]) [address] [place], [address], 01/21/2017 09:19:10 01/18/2001/21/2017 bacte rial vagin osis + vagin itis panel , vagin al chlamydia trachomatis, CATHIE Negati ve negati ve Not Available [facility] ([facility]) [address] [place], [address], 01/21/2017 09:19:10 01/18/2001/21/2017 bacte rial vagin osis + vagin itis panel , vagin al neisseria gonorrhoeae, CATHIE Negati ve negati ve Not Available [facility] ([facility]) [address] [place], [address], 01/21/2017 09:19:10 01/18/2001/19/2017 HSV (1+2) DNA, qual, PCR, unspe cifie d speci men hsv 1 CATHIE Negati ve negati ve Not Available [facility] ([facility]) [address] [place], [address], 01/21/2017 09:19:13 01/18/2011 0101/19/2017 HSV (1+2) DNA, qual, PCR, unspe cifie d speci men hsv 2 CATHIE Negati ve negati ve Not Available [facility] ([facility]) [address] [facility], [place], [address], 01/21/2017 09:19:13 01/18/20 17 01/19/2017 cultu re, vagin al/re ctal, strep tococ cus group B strep gp B CATHIE Negati ve negati ve Cente rs for Disea se Contr ol and Preve ntion (CDC) and Ameri can Congr ess of Obste trici ans and Gynec ologi sts (ACOG ) guide lines for preve ntion of perin atal group B strep tococ walter (GBS) disea se speci fy co-co llect ion of a vagin al and recta l swab speci men to maxim ize sensi tivit y of GBS detec tion. Per the CDC and ACOG, swabb ing both the lower vagin a and rectu m subst antia lly incre ases the yield of detec tion wilmar red with sampl ing the vagin a alone . Penic illin G, ampic illin , or cefaz sofía are indic ated for intra partu m proph ylaxi s of perin atal GBS colon izati on. Refle x susce ptibi lity testi ng shoul d be perfo rmed prior to use of clind amyci n only on GBS isola karen from penic illin -justo rgic women who are consi dered a high risk for anaph ylaxi s. Treat ment with vanco mycin witho ut addit ional testi ng is warra nted if resis tance to clind amyci n is noted . Not Available [facility] ([facility]) [address] [facility], [place], [address], 01/21/2017 09:19:15 Result Notes None recorded. Problems Name Problem SNOMED Code Status Onset Date Resolution Date Notes Provider Name and Address Organization Details Recorded Time Body mass index 30+ - obesity 549470281 Active 2018 ROEL DAVID Attn: Accountcatherine g,[address] [facility], [place], [address], [place] - [facility] 9 15:55:32 Chlamydial infection 913115021 Completed 10/17/2018 ROEL DAVID Attn: Manuel rivera,[address] [facility], [place], [address], [place] [facility] 9 14:44:08 Acute vaginitis 62762204 Completed 10/17/2018 ROEL DAVID Attn: Manuel rivera,[address] [facility], [place], [address], [place] [facility] 9 14:44:11 32133355 Completed 201610/12/2016 Yaz Lopez [place] null, [place] - [facility] 7 13:43:44 Blighted ovum 08634620 Active 2016 Zulay Rosado [place] null, [place] - [facility] 7 13:19:00 Genital herpes simplex 12278531 Active 2016 Oscar casey, [place] - [facility] 7 13:51:04 HPV - Human papillomavi bryan test positive Active 2016 Oscar Holder jacinto, [place] - [facility] 7 13:51:45 Bacterial vaginosis 158187697 Completed 201610/17/2018 ROEL DAVID Attn: Manuel rivera,[address] [facility], [place], [address], [place] [facility] 9 14:44:16 Polycystic ovaries Active 2016 Oscar casey, [place] - [facility] 7 18:46:51 Abnormal testosteron e 760531794 Active 2016 Oscar MachadoGlory null, [place] - [facility] 7 18:47:11 Problem Notes None recorded. Procedures Surgical History Date Name Laterality Status Provider Name and Address Organization Details Recorded Time 08/03/19 19 Intralesional Kenalog injection completed Fabiola Brenner [place] - [facility] 08/02/2018 16:40:21 03/16/20 16 Date of Last Pap Smear completed Zeina Teran [place] - [facility] 06/15/2016 14:46:50 10/23/19 16 Control Implant Removal completed Lexii Muniz [place] - [facility] 10/23/2015 15:13:19 03/28/19 12 Orthopedic Surgery completed Oscar Holder [place] - [facility] 01/17/2017 13:34:47 Imaging Results None recorded. Procedure Notes None recorded. Medical Equipment None Reported. Allergies No known drug allergies Medications Name Sig Start Date Stop Date Status Note LastModified by Organization Details LastModified Time Prometrium 200 mg capsule Take 1 capsule twice a day by oral route. 05/05 completed Not Available Not Available Not Available cyclobenzap rine 10 mg tablet 10/17 completed Not Available Not Available Not Available azithromyci n 250 mg tablet 10/17 completed Not Available Not Available Not Available ibuprofen 800 mg tablet 01/17 completed Not Available Not Available Not Available hydrocodone 5 mg-acetamin ophen 325 mg tablet 01/17 completed Not Available Not Available Not Available metronidazo le 0.75 % (37.5 mg/5 gram) vaginal gel active Not Available Not Available Not Available Elidel 1 % topical cream apply a thin layer to hands BID x 2 weeks, stop x 2 weeks and use Clobetaso l, repeat 2019 active Not Available Not Available Not Avai lable spironolact one 100 mg tablet Take 1 tablet twice a day by oral route. 05/05 completed Not Available Not Available Not Available clobetasol 0.05 % topical cream apply thin layer to hands BID x 2 weeks, stop x 2 weeks and use Clobetaso l, repeat 2019 active Not Available Not Available Not Avai lable Diflucan 150 mg tablet Take 1 tablet as needed by oral route as needed for 1 day. 06/15 completed Not Available Not Available Not Available metronidazo le 500 mg tablet Take 1 tablet every 12 hours by oral route for 7 days. 05/05 completed Not Available Not Available Not Available acyclovir 400 mg tablet active Not Available Not Available Not Available valacyclovi r 500 mg tablet 10/17 completed Not Available Not Available Not Available acyclovir 800 mg tablet Take 1 tablet every day by oral route. 05/05 completed Not Available Not Available Not Available Vitamin tablet Take 1 tablet every day by oral route as directed for 90 days. 05/05 completed Not Available Not Available Not Available oxycodone-a cetaminophe n 5 mg-325 mg tablet 01/17 completed Not Available Not Available Not Available cephalexin 500 mg capsule take 1 capsule BID x 7 days 2019 active Not Available Not Available Not Avai lable promethazin e 25 mg tablet 10/17 completed Not Available Not Available Not Available fluocinolon e 0.025 % topical ointment APPLY TO THE AFFECTED AREA(S) BY TOPICAL ROUTE 2 TIMES PER DAY active Not Available Not Available No t Available ergocalcife rol (vitamin D2) 1,250 mcg (50,000 unit) capsule 10/17 completed Not Available Not Available Not Available clobetasol 0.05 % topical ointment apply a thin layer to hands BID x 2 weeks, stop x 2 weeks and use Elidel, repeat 2018 active Not Available Not Available Not Avai lable dexamethaso ne 0.5 mg tablet Take 1 tablet every day by oral route. 05/05 completed Not Available Not Available Not Available medroxyprog esterone 150 mg/mL intramuscul ar suspension 10/17 completed Not Available Not Available Not Available naproxen 500 mg tablet 01/17 completed Not Available Not Available Not Available Adult Low Dose Aspirin 81 mg tablet,wilfredo yed release Take 1 tablet every day by oral route. 05/05 completed Not Available Not Available Not Available Poly-Iron 150 mg iron capsule 10/17 completed Not Available Not Available Not Available azithromyci n 500 mg tablet TAKE 2 TABLET BY MOUTH FOR 1 DAY 2015 active Not Available Not Available Not Avai lable TriNessa (28) 0.18 mg(7)/0.215 mg(7)/0.25 mg(7)-35 mcg tablet Take 1 tablet every day by oral route. 01/17 completed Not Available Not Available Not Available calcium 600 mg (as carbonate)- vitamin D3 10 mcg (400 unit) tablet 01/17 completed Not Available Not Available Not Available Calcium with Vitamin D3 600 mg (carbonate) -10 mcg (400 unit) capsule Take 1 capsule twice a day by oral route. 01/17 completed Not Available Not Available Not Available Nexplanon 68 mg subdermal implant Inject by subcutane ous route. 06/15 completed Not Available Not Available Not Available 28 mg iron-800 mcg tablet 01/17 completed Not Available Not Available Not Available calcium 600 mg (as carbonate)- vitamin D3 20 mcg (800 unit) tablet Take 1 tablet twice a day by oral route for 30 days. 05/05 completed Not Available Not Available Not Available Vitals Date Recorded Body height Provider Name an d Address Organization Details Last Updated DateTime 04/04/2019 168.91 cm Cris Hoff MA [facility] 04/04/19 20 12:11:27 Date Recorded Body height Body mass index (BMI) Body weight Body temperature Oxygen saturation Oxygen saturation in Arterial blood by Pulse oximetry Heart rate Systolic And Diastolic Systolic And Diastolic Provider Name and Address Organization Details Last Updated DateTime 9 168.91 cm 38.3 kg/m2 327114. 04 g 97.7 [degF] 99 % 99 % 72 /min 90/52 mm[Hg] 88/50 mm[Hg] Irvin Spence MA [facility] 9 14:30:19 Date Recorded Body height Body mass index (BMI) Body weight Heart rate Oxygen saturation Oxygen saturation in Arterial blood by Pulse oximetry Body temperature Systolic And Diastolic Provider Name and Address Organization Details Last Updated DateTime 9 168.91 cm 38.7 kg/m2 149712. 75 g 75 /min 97 % 97 % 98.5 [degF] 102/80 mm[Hg] Zulay Burr MA [facility] 9 14:27:01 Date Recorded Body weight Provider Name an d Address Organization Details Last Updated DateTime 01/17/2017 655611.69571 g Oscar Holder [facility] 2016 13:33:11 Date Recorded Body height Body mass index (BMI) Systolic And Diastolic Provider Name and Address Organization Details Last Updated DateTime 01/17/2017 172.72 cm 35.3 kg/m2 100/70 mm[Hg] Zulay Rosado [place] [facility] 01/17/2017 13:17:27 Social History Question Answer Notes LastModified by Organizat ion Details LastModified Time Tobacco Smoking Status Never Smoker ARIA Hopper, [place] [facility] 04/02/2015 14:19:30 Do You Have An Advance Directive? No Information not available 03/16/2016 Is Blood Transfusion Acceptable In An Emergency? Yes Information not available 03/16/2016 What Is Your Level Of Caffeine Consumption? Heavy Information not available 03/16/2016 How Much Tobacco Do You Chew? None Information not available 03/16/2016 What Type Of Diet Are You Following? REGULAR Information not available 03/16/2016 Which Illicit Or Recreational Drugs Have You Used? Patient Denied Information not available 07/24/2015 Education 12 Information no t available 07/24/2015 Live Alone Or With Others? Alone Information not available 07/24/2015 What Was The Date Of Your Most Recent Tobacco Screening? 10/17/2018 Information not available 10/19/2018 How Many Children Do You Have? 0 Information not available 07/24/2015 Performs Monthly Self-breast Exam? Yes Discuss W Pt And Info Given Cbma Information not available 03/16/2016 Do You Use Protection During Sex? Usually Information not available 07/24/2015 What Is Your Relationship Status? Single Information not available 07/24/2015 Seat Belts Used Routinely Yes Information not available 03/16/2016 Are You Sexually Active? Yes Information not available 07/24/2015 How Much Tobacco Do You Smoke? No [email or web address] Information not available 01/17/2017 General Stress Level Low Information not available 03/16/2016 Do You Use Sunscreen Routinely? No Information not available 03/16/2016 Has Tobacco Cessation Counseling Been Provided? Yes Information not available 10/17/2018 On What Date Was Tobacco Cessation Counseling Provided? 10/17/2018 Information not available 10/17/2018 How Many Years Have You Smoked Tobacco? 0 [email or web address] Information not available 01/17/2017 Sex: Unknown Functional Status Question Answer Note LastModified by Organizat ion Details LastModified Time What is your level of alcohol consumption? Moderate Information not available 03/16/2016 Are you currently employed? 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 None Information not available 03/16/2016 Mental Status None recorded. Family History Relationship Description Onset Age of this Age Resolved Age Notes LastModified by Organization Details LastModified Time Father No current problems or disability [email or web address] Not available 10/17 14:23:19 Mother No current problems or disability [email or web address] Not available 10/17 14:23:19 Medical History Condition Response Other Y High Blood Pressure N Breast Cancer N Thyroid Problems N Kidney or Bladder Problems N Lung Disease N Depression N Blood Clots N GI Problems N Acne N Breast Problem N Eating Disorder N Anemia N Anesthesia Complications N Headaches/Migraines N Ovarian Cancer N Diabetes N Anxiety Disorder N Muscle, Joint, or Bone Problems N Blood Transfusions N Seizures/Epilepsy N Polyps N Infertility N Acid Reflux (GERD) N Cancer N Abuse/Domestic Violence N Asthma N Endometriosis N High Cholesterol N Hepatitis N Liver Disease N Heart Disease N Pre-Eclampsia N Osteoporosis N Gynecological History Statement/Question Response Abnormal Pap Y Flow Moderate Date of LMP 07/26/2018 STIs/STDs Y HPV Vaccine Y Duration of Flow (days) 5 Age at Menarche 11 Current Control Method IUD Age at First Child If Post Menopausal, Age at Menopause Frequency of Cycle (Q days) 27 Sexually Active? Y Menses Monthly Y Date of Last Pap Smear 03/16/2016 Sexual Problems? N LMP Approximate Desired Control Method Seeking Pre gnancy Obstetrics History GPAL:G 2 P 0 0 1 1 Type Value Multiple Births 0 Full Term 0 Induced 0 Spontaneous 1 Premature 0 Living 1 Ectopics 0 Total 2 Immunizations Vaccine Type Date Status Note Provider Jasvir ruano and Address Organization Details Recorded Time DT 5 completed ARIA [place], [place] [facility] 10/18/2018 12:03:25 DT 5 [place]A [place] [facility] 10/18/2018 12:03:37 DTP 5 [place] [facility] 10/18/2018 12:03:47 Hib, unspecified formulation 5 [place] [facility] 10/18/2018 12:04:04 Hib, unspecified formulation 5 completed [place] [facility] 10/18/2018 12:04:13 Hib, unspecified formulation 5 completed [place] [facility] 10/18/2018 12:04:22 Hep B, adolescent or pediatric 5 completed [place] [facility] 10/18/2018 12:04:42 Hep B, adolescent or pediatric 5 completed [place] [facility] 10/18/2018 12:04:51 Hep B, adolescent or pediatric 5 [place] [facility] 10/18/2018 12:05:00 HPV, unspecified formulation 3 completed [place] [facility] 10/18/2018 12:05:25 HPV, unspecified formulation 4 completed [place] [facility] 10/18/2018 12:05:36 Influenza, split virus, quadrivalent, preservative 8 completed [place] [facility] 10/18/2018 12:06:00 polio, unspecified formulation 5 [place] [facility] 10/18/2018 12:06:18 polio, unspecified formulation 5 completed [place] [facility] 10/18/2018 12:06:33 polio, unspecified formulation 5 [place] [facility] 10/18/2018 12:06:43 COVID-19, mRNA, LNP-S, PF, 100 mcg/0.5mL dose or 50 mcg/0.25mL dose 1 completed Rachel casey [place] - [facility] 09/03/2020 12:57:33 Past Encounters Encounter ID Performer Location Encounter Start Date Encounter Closed Date Diagnosis/Indication Diagnosis SNOMED-CT Code Diagnosis ICD10 Code Diagnosis Note [id number] Lexii Muniz MD [address] [address] 04/02/2015 13:57:49 04/02/2015 14:42:27 High risk sexual behavior 854340570 Z72.51 Contraception care 34300 5005 Z30.40 [id number] Lexii Muniz MD [address] [address] 04/09/2015 10:44:02 04/22/2015 18:55:18 Chlamydial infection 003393120 A74.9 [id number] Lexii Muniz MD [address] [address] 07/24/2015 10:54:09 07/24/2015 13:33:41 Acute vaginitis 54868899 N76.0 H/O chlamydia. KASEY today. Contraception care 26503 5005 Z30.40 Continue nexplanon. [id number] Lexii Muniz MD [address] [address] 09/24/2015 15:26:39 09/24/2015 16:24:26 Contraception care 421991038 Z30.40 Review vitals and 6 1/2 lb weight gain since March 2015. Patient counseled on other contracept miriam choices. May consider paraguard. (patient does not have insurance currently) Handout given. Patient to RTC if removal desires. [id number] Lexii Muniz MD [address] [address] 10/23/2015 14:16:27 10/23/2015 15:13:51 Contraception care 373707350 Z30.40 Nexplanon removal today. Will return next week for paraguard iud insertion. [id number] [facility] [address] [place] [address] 03/16/2016 14:10:57 03/17/2016 09:49:39 Gynecologic examination 20659768 Z01.419 Venereal d isease screening 255646061 Z11.3 Family cash nning surveillance 118248073 Z30.09 patient wanted to get . she refused to have contracept ion Irregular periods 647363 07 N92.6 Counseled about it. Possible withdrawl from nexplannon removal.Of fered control. She say she is planning to get . Bacterial vaginosis 4197 62801 N76.0 [id number] MD Hernán Lou (PRE PRESS MANAGER) [address] [place] [address] 06/15/2016 14:29:13 06/16/2016 16:27:12 Polycystic ovaries 56198216 E28.2 counseled about different causes including PCOS. Counseled about insulin resistance , effect of insulin on androgens, menstrual periods, estrogen levels and its effect on EMT, breast, metabolic syndrome. counseled about weight loss, diet and excercise, fruits and vegetables . Obese 266038303 E66.9 COUNSELED ABOUT DIET, EXCERCISE, WEIGHT LOSS [id number] MD Hernán Lou (PRE PRESS MANAGER) [address] [place] [address] 08/25/2016 10:58:52 08/25/2016 14:39:59 Bacterial vaginosis 903330654 N76.0 counseled about it Obese 312527035 E66.9 COUNSELED ABOUT DIET, EXCERCISE, WEIGHT LOSS Irregular periods 319273 07 N92.6 d/w patient lab work. will check prolactin level. counseled about importance of doing pelvic ultrasound . [id number] MD Hernán Lou (PRE PRESS MANAGER) [address] [place] [address] 09/15/2016 10:52:08 09/15/2016 13:12:09 Routine care 947400037 Z34.00 [id number] MD Hernán Lou (PRE PRESS MANAGER) [address] [place] [address] 10/08/2016 14:46:34 10/08/2016 15:26:59 Early stage of 171727748 Z3A.00 D/W patient ultrasound result. Still no pole. Counselled about ultrasound report. Will check BHCG level. If BHCG raising normal will repeat ultrasound in 4 weeks. Advised patient to go to ER if vaginal bleeding more than pad per hour, fever greater than 100.4, severe pelvic pain [id number] MD Hernán Richardson (PRE PRESS MANAGER) [address] [place] [address] 10/14/2016 15:11:03 10/15/2016 13:26:41 Blighted ovum 94365202 O02.0 Pt given results of US understand s condition procedure and risks and agrees to procede [id number] MD Hernán Richardson (PRE PRESS MANAGER) [address] [place] [address] 01/17/2017 12:41:01 01/17/2017 14:29:56 Candidiasis of vagina 04116406 B37.3 Polycystic ovaries 07573 008 E28.2 Family cash nning surveillance 520287157 Z30.09 Past pregn anthony history of miscarriage 155992921 Z87.59 Genital he rpes simplex 05031143 A60.9 HPV - Katelyn n papillomavirus test positive 583614664 R87.619 Bacterial vaginosis 4197 48048 N76.0 Depressive disorder 3548 9007 F32.9 Repeat PHQ-9 in 6 mo, hopefully when pt [id number] MD Hernán Watkins (Adult Med) [address] [place] [address] 05/05/2018 14:01:52 05/08/2018 09:47:12 Chronic eczema 36823768 L30.9 Discussed with patient, she wants 0.025 % ointment instead. [id number] MD Bernadette Rosario [facility] ([facility]) [address] [place] [address] 08/02/2018 15:43:35 08/03/2018 08:53:31 Atopic dermatitis 38989492 L20.9 [id number] [facility] [address] [place] [address] 10/17/2018 14:00:12 10/18/2018 09:52:19 Adult health examination 946169993 Z00.00 Medical history of chronic eczema and HSV which she takes oral acyclovir for.Well-d eveloped and healthy appearing. Patient cleared for work.Paper work for work filled out, copied, and given back to patient. Body mass index 30+ - obesity 373038951 Z68.38 -Discussed lifestyle modificati ons including 150 minutes moderate intensity exercise per week, restrictin g intake of fast/proce ssed foods, sweets, sugary beverages. [id number] MD Bernadette Rosario FP ([address]) [address] [facility] [place] [address] 04/04/2019 12:02:15 04/05/2019 09:10:52 Atopic dermatitis 96947652 L20.9 Health Concerns Section Related Observation LastModified by Organization Detai ls LastModified Time None Recorded Concern Status LastModified by Organization Details LastModified Time None Recorded Advance Directives Directive N: Payers Insurance Date Sequence Insurance Name Policy Number Policy Blank Covered Member ID Blank Member ID Guarantor Name 04/01/2019 1 [facility] - DOS PRIOR TO 2020 (MEDICAID REPLACEMENT - HMO) Eneida Patel [id number] Eneida Patel 03/12/2016 SLIDING FEE SCHEDULE - DISCOUNT Eneida Patel 10/29/2015 2 *SELF PAY* Dimple Patel 12/29/2015 1 [place] Eneida Patel [id number] Eneida Patel 05/05/2018 1 [facility] (MEDICAID HMO) Eneida Patel [id number] Eneida Patel Notes Date Note Type Note Provider Name and Address Organization Details Recorded Time 01/17/2017 text/html VaginitisReporte d bypatient.Location:[facility] Quality:itching Associated Symptoms:no rash; no lesions 21 y/o AAF A1 here for vaginal itching and family planning. Wants to get . Oscar casey [place] - [facility] 01/17/2017 14:02:50 05/05/2018 text/html 1. First time. 2 . Chronic skin eczema of hands for years, used to use fluocinolone ointment, helps, but wants rto be referred to brick burner. NKDA, not . Rivera Eduardo MD Attn: Accounting,[address] , [place], [address], [place] [facility] 05/05/2018 14:43:26 10/17/2018 text/html 23 year old AAF presents today for a work physical. She is overall healthy and has no acute concerns today. 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 Work completed her TB skin test. Denies fever, chills, nausea, vomiting, chest pain, abdominal pain, SOB, or changes in bladder or bowel habits. Sheryl Snider MD Attn: Accounting, [address] , [place], [address], [place] [facility] 10/19/2018 14:22:11 OBGyn Episode Ob Episode Information Episode Created Date Number of Fetuses Patient Bloodtype Patient rh Status Prepregnancy Weight lbs Domestic Partner Domestic Partner Phone Father Name Milling Supervisor Status 09/16/19 17 1 O Positive CLOSED Fetus Data First Name Last Name Admitted to NICU Weight (g) Sex Living Outcome Pediatric Complications Fetus ID Race Codes Race Delivery Type , Spontane ous [id number] Alvarado Calculation Initial Alvarado Date Initial Exam Date Initial Exam Provider Initial Ultrasound Date Last Menstrual Period Date Ultra Sound Weeks Gestation 04/01/2017 09/15/2016 kalli 09/15/2016 06/25/2016 6 Eighteen To Twenty Week Alvarado Update Ultra Sound Date Fundal Height At Umbil Quickening Date Ultra Sound Latest Weeks Gestation Final Alvarado Confirmed By Final Alvarado Confirmed Date Final Alvarado Date Ultra Sound Latest Days Gestation 0 04/01/19 18 0 Pre-angelita Flowsheet Flowsheet Date 09/15/2016 Israel Score Blood Edema Fundus Height Fundus Units Glucose Ketones Leukocytes Nitrite Labor Signs Protein Cervic Dilation Cervic Effacement Cervic Station neg none 9 cm none small none neg 0cm 0% Type Weight in lbs Pre/Post Dialysis Refused 224.043156369492 BP Diastolic BP Location Tested BP Systolic BP Type 78 126 sitting Fetus Heart Rate Present Fetus Movement A No Comments ON HER PREVIOUS VISIT ON 07/28 04/13 URINE TEST WAS NEGATIVE BUT ULTRASOUND SHOWED GESTATIONAL SAC. D/W PATIENT ULTRASOUND RESULT. BHCG AND ULTRASOUND ORDERED. PANEL ORDERED. D/W PATIENT ABOUT ULTRASOUND REPORT OF GESTATIONAL SAC WITH OUT POLE - EARLY VS BLIGHTED OVUM . COUNSELED ABOUT BLIGHTED OVUM. ADVISED PATIENT TO GO TO ER IF VAGINAL BLEEDING, PELVIC PAIN AND FEVER > 100.4. SHE VERBALIZED UNDERSTANDING Flowsheet Date 10/08/2016 Israel Score Blood Edema Fundus Height Fundus Units Glucose Ketones Leukocytes Nitrite Labor Signs Protein Cervic Dilation Cervic Effacement Cervic Station neg none none negative none neg Type Weight in lbs Pre/Post Dialysis Refused 229.159623770748 BP Diastolic BP Location Tested BP Systolic BP Type 66 106 sitting Fetus Heart Rate Present Fetus Movement A No Comments D/W patient ultrasound resul t. Still no pole. Counselled about ultrasound report. Will check BHCG level. If BHCG raising normal will repeat ultrasound in 4 weeks. Flowsheet Date 01/17/2017 Israel Score Blood Edema Fundus Height Fundus Units Glucose Ketones Leukocytes Nitrite Labor Signs Protein Cervic Dilation Cervic Effacement Cervic Station Type Weight in lbs Pre/Post Dialysis Refused 232.78937034677 BP Diastolic BP Location Tested BP Systolic BP Type 70 100 sitting Fetus Heart Rate Present Fetus Movement Comments Menstrual History Last Menstrual Date Menses Monthly On Bcp Conception Prior Menses Frequency Hcg Plus Date Menarche Onset Age 0306/25/2016 Genetic Screening And Infection History Question Response Note Patient's Age Will Be 35 Yea rs Or Older At Estimated Date of Delivery false Thalassemia (Belarusian, Rwandan, Mediterranean, Or Background): MCV < 80 false Neural Tube Defect (Meningom yelocele, Spina Bifida, Or Anencephaly) false Congenital Heart Defect false Down Syndrome false Bruno-Sachs (eg, Christianity, Cajun , Portuguese-[place]) false Gray Disease false Sickle Cell Disease Or Trait () false Hemophilia Or Other Blood Disorders false Muscular Dystrophy false Cystic Fibrosis false Wayland's Chorea false Mental Retardation/Autism false If Yes, Was Person Tested For Fragile X? false Other Inherited Genetic Or C hromosomal Disorder false Maternal Metabolic Disorder (eg, Type 1 Diabetes, PKU) false Patient Or Baby's Father Had A Child With Defects Not Listed Above false Recurrent Loss, Or A Stillbirth false Medications (including Suppl ements, Vitamins, Herbs, OTC Drugs), Illicit/Recreational Drugs, Alcohol false If Yes, Agent(s) And Strength/Dosage false Any Other Genetic History false Live With Someone With TB Or Exposed To TB false Patient Or Partner Has Histo ry Of Genital Herpes false Rash Or Viral Illness Since Last Menstrual Period false History Of STD, Gonorrhea, C hlamydia, HPV, Syphilis true CHLAMYDIA04/02/15. TREATED. TO C -VE. HPV Other Infection History true BV ON Plans and Education First Trimester Discussed Date Discussion Item Discussion Note Discuss ed By 09/15/[address] of care [facility] 09/15/[address] [facility] 09/15/2016 Intimate partner violence [facility] 09/15/2016 Environmental/work hazards s [facility] 09/15/2016 Scre[place] for aneuploidy [facility] 09/15/2016 Nutrition counseling ; special diet; dietary precautions (mercury, listeriosis) [facility] 09/15/2016 Childbirth classes/hospital facilities [facility] 09/15/2016 HIV and other routine tests [facility] 09/15/2016 Risk factors identif ied by history [facility] 09/15/2016 Weight gain counseling [facility] 09/15/[address] [facility] 09/15/[address] [facility] 09/15/2016 Use of any medicatio ns (including supplements, vitamins, herbs, or OTC drugs) [facility] 09/15/2016 [facility] 09/15/[address] [facility] 09/15/2016 Tobacco/smoking cess ation counseling (ask, advise, assess, assist, and arrange) [facility] 09/15/2016 Illicit/recreational drugs s [facility] 09/15/[address] [facility] 09/15/[address] [facility] 09/15/[address] [facility] 09/15/[address] [facility] 09/15/2016 Avoidance of saunas or hot tubs [facility] 09/15/2016 Toxoplasmosis precautions (cats/raw meat) [facility] Second Trimester Discussed Date Discussion Item Discussion Note Discuss ed By Third Trimester Discussed Date Discussion Item Discussion Note Discuss ed By Delivery Information Delivery Date Delivery Type Labor Anesthesia Weeks Gestation Incision Type Labor Labor Length Hrs Delivered By Post Complications Tubal Sterilization Discharge Date Comments 7 11 Suction D&C per V Discharge Information Feeding Method Contraceptive Method Maternal HG B and HCT Levels
--- OUTSIDE RECORDS SUMMARY | 2024-10-08 01:04 | XMS_ITS | Clinical Summary ---
Author Organization [facility] Address [address] [place] [address] Care Team Providers Care Jewelry Mold Maker Name Role Phone Unavailable Primary Care Provider Unavailabl e Source Comments [facility],non-owned Affiliates and Associated Physician Practices is amultiple site organization consisting of ambulatory clinics and hospital sitesin [place], [place], [place] and [place]. This disclosure is being madepursuant to the Care Everywhere program and may not contain all information available regarding this patient. Last updated 17.[facility] Allergies No known active allergies Medications * Be aware that medications may not be up to date on this document. Alwaysverify current medications with the patient. Vit-Fe Fumarate-FA ( vitamin) 28-0.8 MG tablet Take 1 (one) tablet by mouth once daily Active ibuprofen (Motrin) 600 MG tablet Take 1 (one) tablet by mouth every 6 hours as needed for Pain 30 tablet 04/12/2024 10:06 AM FAMILY MEDICINE RESIDENT 04/12/2024 Active acetaminophen (Tylenol) 500 MG tablet Take 2 (two) tablets by mouth every 6 hours as needed for Fever or Pain 60 tablet 04/12/2024 10:06 AM FAMILY MEDICINE RESIDENT 04/12/2024 Active docusate sodium (Colace) 100 MG capsule Take 1 (one) capsule by mouth once daily 60 capsule 04/12/2024 10:06 AM FAMILY MEDICINE RESIDENT 04/12/2024 Active polyethylene glycol 3350 (MiraLax) 17 GM/SCOOP powder Mix one capful of powder in liquid and drink once daily 238 g 1 04/12/2024 10:06 AM FAMILY MEDICINE RESIDENT 04/12/2024 Active ferrous sulfate 325 (65 FE) MG tablet Take 1 (one) tablet by mouth once daily 30 tablet 2 04/12/2024 10:06 AM FAMILY MEDICINE RESIDENT 04/12/2024 Active norethindrone 0.35 MG tablet Take 1 (one) tablet by mouth once daily 28 tablet 3 04/12/2024 10:06 AM FAMILY MEDICINE RESIDENT 04/12/2024 Active Active Problems Problem Noted Date Diagnosed Date premature rupture of membranes (PPROM) with unknown onset of labor 04/11/2024 Immunizations Immunization Administration Dates Next Due MMR 04/12/2024(Deferred: Other - pt immune) TDAP (7yrs+) 04/12/2024(Deferred: Patient Ref used) Social History Tobacco Use Types Packs/Day Years Used Date Smoking Tobacco: Never Smokeless Tobacco: Never Tobacco Cessation:Counseling Given: Not Answered Alcohol Use Standard Drinks/Week Comments Not Currently 0 (1 standard drink = 0.6 oz pur e alcohol) Overall Financial Resource Strain (CARDIA) Answe r Date Recorded How hard is it for you to pa y for the very basics like food, housing, medical care, and heating? Not hard at all 04/11/2024 [facility] [place] [facility] - Occupational Stress Questionnaire Answer Date Recorded Do you feel stress - tense, restless, nervous, or anxious, or unable to sleep at night because your mind is troubled all the time - these days? Not at all 04/11/2024 Hunger Vital Sign Answer Date Recorded Within the past 12 months, y ou worried that your food would run out before you got the money to buy more. Never true 04/11/19 25 Within the past 12 months, t he food you bought just didn't last and you didn't have money to get more. Never true 04/11/2024 PRAPARE - Transportation Answer Date Re corded In the past 12 months, has l ack of transportation kept you from medical appointments or from getting medications? No 03/28 In the past 12 months, has l ack of transportation kept you from meetings, work, or from getting things needed for daily living? No 04/11/2024 [place] Depression Scale Answer Date Recorded [place] Depression Scale Total 5 04/12/2024 The thought of harming myself has occurred to me . Never 04/12/2024 Housing Stability Vital Sign Answer Kan e Recorded In the last 12 months, was t here a time when you were not able to pay the mortgage or rent on time? No 04/11/2024 In the past 12 months, how m any times have you moved where you were living? 0 04/11/2024 At any time in the past 12 m [facility], were you homeless or living in a care home (including now)? No 04/11/2024 Comments No Sex and Gender Information Value Date Recorded Sex Assigned at Not on file Legal Sex Female 9:27 AM FAMILY MEDICINE RESIDENT Gender Identity Not on file Sexual Orientation Not on file Last Filed Vital Signs Vital Sign Reading Time Taken Comments Blood Pressure 123/71 04/12/2024 8:47 AM FAMILY MEDICINE RESIDENT Pulse 68 04/12/2024 8:47 AM FAMILY MEDICINE RESIDENT Temperature 36.7 C (98.1 F) 04/12/2024 8:47 AM FAMILY MEDICINE RESIDENT Respiratory Rate 16 04/12/2024 8:47 AM FAMILY MEDICINE RESIDENT Oxygen Saturation 99% 04/12/2024 8:47 AM FAMILY MEDICINE RESIDENT Inhaled Oxygen Concentration - - Weight 133 kg (293 lb 3.4 oz) 04/11/2024 9:28 AM FAMILY MEDICINE RESIDENT Height 170.2 cm (5' 7) 04/11/2024 9:28 AM FAMILY MEDICINE RESIDENT Body Mass Index 45.92 04/11/2024 9:28 AM FAMILY MEDICINE RESIDENT Plan of Treatment Health Maintenance Due Date Last Done Comments HEPATITIS C SCREENING 08/08/2012 DTAP/TDAP/TD VACCINES (1 - Tdap) 2013 HEPATITIS B VACCINE (1 of 3 - 19+ 3-dose series) 2013 HPV VACCINE (1 - 3-dose SCDM series) 2021 COVID-19 VACCINE (3 - 2023-2 5 season) 2023 10/22/2020, 06/20/2020 INFLUENZA VACCINE (#1) 2024 , 01/19/2018 PAP SMEAR 02/15/2027 02/16/2024, 02/16/2024 ZOSTER VACCINE (1 of 2) 2044 HIV SCREENING Completed 02/16/2024 DEPRESSION SCREENING Completed 04/12/2024 HIB VACCINE Aged Out No longer eligi ble based on patient's age to complete this topic MENINGOCOCCAL (Group B) VACCINE SHARED DECISION-MAKING Aged Out No longer eligible based on patient's age to complete this topic MENINGOCOCCAL GROUPS A/C/Y/W VACCINE Aged Out No longer eligible b ased on patient's age to complete this topic PNEUMOCOCCAL VACCINE Aged Out No long er eligible based on patient's age to complete this topic Insurance * Guarantor: YESIKA DRAKE Account Type Relation to Patient Date of Phone Billing Address [facility] [place] [address] Advance Directives * Full Code (Latest Code Status on File) Date Activated Date Inactivated Comments 04/11/2024 9:44 AM 04/12/2024 3:27 PM
--- OUTSIDE RECORDS SUMMARY | 2024-10-08 01:05 | XMS_ITS | Referral Summary ---
[facility] Address [address] [place] [id number] Care Team Providers Care Right Of Way Cutter Name Role Phone No, Physician Primary Care Provider [phone] Allergies No known active allergies Medications No known medications Active Problems Problem Noted Date Diagnosed Date Physical exam, pre-employment 04/20/2022 Assessment & Plan (04/20/2022 5:51 PM CROP DUSTER): No abnormalities on physical exam to preclude employment. Urine sample obtained for urine drug screening. Pre-employment drug screening 04/20/2022 Assessment & Plan (04/20/2022 5:51 PM CROP DUSTER): Urine sample obtained for urine drug screening. Abnormal weight gain 05/07/2021 Class 2 obesity due to exces s calories without serious comorbidity with body mass index (BMI) of 39.0 to 39.9 in adult 05/07/2021 Immunizations Immunization Administration Dates Next Due Hep B, Adolescent or Pediatric 5,1994,1994,1994 Moderna SARS-CoV-2 Monovalen t Vaccination (12+ YRS) 06/20/2020 Social History Tobacco Use Types Packs/Day Years Used Date Smoking Tobacco: Never Smokeless Tobacco: Never Tobacco Cessation:Counseling Given: Not Answered AUDIT-C Answer Date Recorded Q1: How often do you have a drink containing alc ohol? 2-4 times a month 04/20/2022 Q2: How many drinks containi ng alcohol do you have on a typical day when you are drinking? 3 or 4 04/20/2022 Q3: How often do you have si x or more drinks on one occasion? Never 04/20/2022 Personal Safety Answer Date Recorded Getting School Help Needed Not on file 04/26 Comments Unknown Sex and Gender Information Value Date Recorded Sex Assigned at Not on file Legal Sex Female 6:49 PM CROP DUSTER Gender Identity Not on file Sexual Orientation Not on file Last Filed Vital Signs Vital Sign Reading Time Taken Comments Blood Pressure 118/78 04/20/2022 4:44 PM CROP DUSTER Pulse 75 04/20/2022 4:44 PM CROP DUSTER Temperature 36.7 C (98 F) 04/20/2022 4:44 PM CROP DUSTER Respiratory Rate 14 04/20/2022 4:44 PM CROP DUSTER Oxygen Saturation 99% 04/20/2022 4:44 PM CROP DUSTER Inhaled Oxygen Concentration - - Weight 116.1 kg (256 lb) 04/20/2022 4:44 PM CROP DUSTER Height 172.7 cm (5' 8.01) 04/20/2022 4:44 PM CS T Body Mass Index 38.91 04/20/2022 4:44 PM CROP DUSTER Plan of Treatment Not on file Insurance [facility] Care Teams Right Of Way Cutter Relationship Specialty Start Date End Date No, Physician PCP - General 06/23/20
--- OUTSIDE RECORDS SUMMARY | 2024-10-08 01:05 | XMS_ITS | Clinical Summary ---
Author Organization [facility] Address [address] [place] [id number] Care Team Providers Care Contestant Coordinator Name Role Phone No, Physician Primary Care Provider [phone] Allergies No known active allergies Medications No known medications Active Problems Problem Noted Date Diagnosed Date Physical exam, pre-employment 04/20/2022 Assessment & Plan (04/20/2022 5:51 PM TEST DESK OPERATOR): No abnormalities on physical exam to preclude employment. Urine sample obtained for urine drug screening. Pre-employment drug screening 04/20/2022 Assessment & Plan (04/20/2022 5:51 PM TEST DESK OPERATOR): Urine sample obtained for urine drug screening. Abnormal weight gain 05/07/2021 Class 2 obesity due to exces s calories without serious comorbidity with body mass index (BMI) of 39.0 to 39.9 in adult 05/07/2021 Immunizations Immunization Administration Dates Next Due Hep B, Adolescent or Pediatric 5,1994,1994,1994 Moderna SARS-CoV-2 Monovalen t Vaccination (12+ YRS) 06/20/2020 Surgical History Surgery Date Site/Laterality Comments GANGLION CYST EXCISION Left DILATION AND CURETTAGE OF UTERUS Family History Medical History Relation Name Comments Hypertension Father Hypertension Mother Relation Name Status Comments Father Alive Mother Alive Social History Tobacco Use Types Packs/Day Years [...] on file Legal Sex Female 6:49 PM TEST DESK OPERATOR Gender Identity Not on file Sexual Orientation Not on file Obstetrics History Last Filed Vital Signs Vital Sign Reading Time Taken Comments Blood Pressure 118/78 04/20/2022 4:44 PM TEST DESK OPERATOR Pulse 75 04/20/2022 4:44 PM TEST DESK OPERATOR Temperature 36.7 C (98 F) 04/20/2022 4:44 PM TEST DESK OPERATOR Respiratory Rate 14 04/20/2022 4:44 PM TEST DESK OPERATOR Oxygen Saturation 99% 04/20/2022 4:44 PM TEST DESK OPERATOR Inhaled Oxygen Concentration - - Weight 116.1 kg (256 lb) 04/20/2022 4:44 PM TEST DESK OPERATOR Height 172.7 cm (5' 8.01) 04/20/2022 4:44 PM CS T Body Mass Index 38.91 04/20/2022 4:44 PM TEST DESK OPERATOR Plan of Treatment Health Maintenance Due Date Last Done Comments Cervical Cancer Screening 1994 Depression Screening 1994 Hepatitis C Screening 1994 DTaP/Tdap/Td Vaccine (4 - Tdap) 2005 03/07/1995, 03/07/1995, 01/05/1995, Additional history exists Varicella Vaccines (1 of 2 - 13+ 2-dose series) 08/14/2007 Regular Well Visit/Exam 18-64 2012 HPV Vaccines (3 - 3-dose series) 08/07/2013 05/11/2013, 05/09/2013, 02/07/2013, Additional history exists Covid-19 Vaccine ( - 2023- season) 2023 10/22/2020, 06/20/2020 Influenza Vaccine (Season Ended) 2024 01/18/2023, 01/19/2018 Hepatitis B Screening Completed 03/07/1995 , 1994, 1994, Additional history exists Pneumococcal vaccine <65 Aged Out No longer eligible based on patient's age to complete this topic Insurance [facility] Care Teams Contestant Coordinator Relationship Specialty Start Date End Date No, Physician PCP - General 06/23/20
--- OUTSIDE RECORDS SUMMARY | 2024-10-08 01:05 | XMS_ITS | Data Portability ---
Author Organization [facility] Address [address] [place] [address] Assessment No assessment recorded. Plan of Treatment Reminders Order Date Submit Date Provider Last Modified By Organization Details Last Modified Time Details Appointments SURG Salpingec timmy 2024 02:00P Lewis RUTHERFORD MD Not available Not available Not available SURG POST OP 2024 02:45P Lewis RUTHERFORD MD Not available Not available Not available Lab hbcab (hepatiti s B core Ab) igm, serum 2024 025 [facility] (Lab), [address], [place], [address], 06/22/2024 12:41:01 HBsAg (hepatiti s B surface Ag), serum 2024 025 [facility] (Lab), [address], [place], [address], 06/22/2024 12:41:00 hepatitis C virus Ab, serum 2024 025 [facility] (Lab), [address], [place], [address], 06/22/2024 12:40:59 HIV 1+2 AB + HIV 1 p24 Ag, qualitati ve immunoass ay, serum 2024 025 [facility] (Lab), [address], [place], [address], 06/22/2024 12:41:00 RPR (rapid plasma reagin), serum 2024 025 [facility] (Lab), [address] [facility], [place], [address], 06/22/2024 12:41:01 unlisted lab - women's health swab plus, CATHIE 2024 025 [facility] (Lab), [address] [facility], [place], [address], 06/23/2024 07:51:45 Referral None recorded. Procedures None recorded. Surgeries None recorded. Imaging US, obstetric , 2nd or 3rd trimester 2024 025 [email or web address], [address], [place], [address], 04/03/2024 13:24:13 Medication Orders metronida zole 500 mg tablet 2024 025 [facility][id number], [address], [place], [place], [id number], 06/21/2024 15:38:34 norethind lena (contrace ptive) 0.35 mg tablet 2024 025 [facility] #[id number], [address], [place], [place], [id number], 06/21/2024 15:32:10 FE 04/16 (28) 1 mg-20 mcg (21)/75 mg (7) tablet 2024 025 [facility] #[id number], [address], [place], [place], [id number], 06/21/2024 15:32:00 Patient TargetsNo targets recorded. Patient InstructionsNo instructions recorded. Reason for Referral None Reported. Results Created Date Observation Date Name Description Value Unit Range Abnormal Flag Note LastModifiedBy Organization Detail LastModifiedTime 03/30/19 25 03/30/2024 CT/GC AND TRICH OMONA S VAGIN NILO (RRNA ), URINE chlamydia trachomatis, PCR Negati ve negati ve Not Available [facility] (Lab) [address] [facility], [place], [address], 03/31/2024 13:12:28 03/30/19 25 03/30/2024 CT/GC AND TRICH OMONA S VAGIN NILO (RRNA ), URINE neisseria gonorrhoeae, PCR Negati ve negati ve Not Available [facility] (Lab) [address] [facility], [place], [address], 03/31/2024 13:12:28 03/30/19 25 03/30/2024 CT/GC AND TRICH OMONA S VAGIN NILO (RRNA ), URINE trichomonas vaginalis ribosomal RNA (rrna) Negati ve negati ve Not Available [facility] (Lab) [address] [facility], [place], [address], 03/31/2024 13:12:28 03/30/19 25 03/30/2024 CULTU RE: URINE result report SEE RESULT S BELOW Test: Cultu re: Urine Speci men Sourc e: Urine - Clean Catch Speci men Type: Urine Speci men Date: 1034 Resul t Date: 2001 Resul t Statu s: Final resul t Abnor mal: No Resul ting Lab: [facility] [address] [facility] [address] Tel: CULTU RE ----- ----- ----- --- No growt h in 1 day (dete ction level of 10,00 0 colon ies / ml.) Not Available [facility] (Lab) [address] [facility], [place], [address], 03/31/2024 21:06:42 03/30/19 25 03/30/2024 urina lysis , dipst ick Leukocytes + Not Available [facility] [address], [place], [address], 03/30/2024 10:21:36 03/30/19 25 03/30/2024 urina lysis , dipst ick Protein trace Not Available [facility] [address], [place], [address], 03/30/2024 10:21:36 03/30/19 25 03/30/2024 urina lysis , dipst ick pH 6 Not Available [facility] [address], [place], [address], 03/30/2024 10:21:36 03/30/19 25 03/30/2024 urina lysis , dipst ick Blood ++ Not Available [facility] [address], [place], [address], 03/30/2024 10:21:36 03/30/19 25 03/30/2024 urina lysis , dipst ick Specific Thatcher 1.020 Not Available [facility] [address], [place], [address], 03/30/2024 10:21:36 03/30/19 25 03/30/2024 urina lysis , dipst ick Appearance cloudy Not Available [facility] [address], [place], [address], 03/30/2024 10:21:36 03/30/19 25 03/30/2024 urina lysis , dipst ick Color yellow Not Available [facility] [address], [place], [address], 03/30/2024 10:21:36 06/22/19 25 06/21/2024 HEPAT ITIS C ANTIB FELA SCREE N, REFLE X TO CONFI RMATI ON hepatitis C antibody Non-re active non-re active Antib odies to HCV Not Detec margaret, does not exclu de the possi bilit y of expos ure to HCV. Not Available [facility] (Lab) [address], [place], [address], 06/22/2024 12:40:59 06/22/19 25 06/21/2024 HIV 1/2 ANTIG EN/AN TIBOD Y, REFLE X CONFI RMATI ON HIV antigen/anti body Nonrea ctive nonrea ctive HIV-1 antig en and HIV-1 /HIV- 2 antib odies were not detec margaret. No labor atory evide nce of HIV infec tion. Not Available [facility] (Lab) [address], [place], [address], 06/22/2024 12:41:00 06/22/19 25 06/21/2024 HEPAT ITIS B SURFA CE ANTIG EN hepatitis B surface antigen Non-re active non-re active This assay was perfo rmed using [employer] ratio n reage nts and test kits. Value s obtai teofilo with other assay metho ds or kits canno t be used inter guadalupe eably . Not Available [facility] (Lab) [address], [place], [address], 06/22/2024 12:41:00 06/22/19 25 06/21/2024 HEPAT ITIS B CORE, IGM hepatitis B core IgM antibody Non-re active non-re active IgM anti- HBc not detec margaret. Does not exclu de the possi bilit y of expos ure to or infec tion with HBV. Test Perfo rmed by: [facility] [address] [place] [address] Not Available [facility] (Lab) [address], [place], [address], 06/22/2024 12:41:01 06/22/19 25 06/21/2024 RPR SCREE N, REFLE X TITER /CONF IRMAT ION RPR qualitative Nonrea ctive nonrea ctive Not Available [facility] (Lab) [address] [facility], [place], [address], 06/22/2024 12:41:01 06/22/19 25 06/21/2024 WOMEN 'S HEALT H SWAB PLUS, CATHIE bacterial vaginosis (bv), tma Positi ve negati ve abnormal Not Available [facility] (Lab) [address], [place], [address], 06/23/2024 07:51:45 06/22/19 25 06/21/2024 WOMEN 'S HEALT H SWAB PLUS, CATHIE andrea species, tma Positi ve negati ve abnormal Not Available [facility] (Lab) [address] [facility], [place], [address], 06/23/2024 07:51:45 06/22/19 25 06/21/2024 WOMEN 'S HEALT H SWAB PLUS, CATHIE andrea glabrata, tma Negati ve negati ve Not Available [facility] (Lab) [address] [place], [address], 06/23/2024 07:51:45 06/22/19 25 06/21/2024 [facility], CATHIE trichomonas vaginalis, tma Negati ve negati ve Not Available [facility] (Lab) [address] [place], [address], 06/23/2024 07:51:45 06/22/19 25 06/21/2024 WOMEN 'S HEALT H SWAB PLUS, CATHIE chlamydia trachomatis, PCR Negati ve negati ve Not Available [facility] (Lab) [address] [place], [address], 06/23/2024 07:51:45 06/22/19 25 06/21/2024 WOMEN 'S HEALT H SWAB PLUS, CATHIE neisseria gonorrhoeae, PCR Negati ve negati ve Bacte rial vagin osis detec ts the follo wing bacte flor assoc iated with bacte rial vagin osis (BV): Lacto bacil janae (L. gasse ri, L. crisp atus and L. jense ana), [place] eremalick a vagin nilo, and Atopo bium vagin ae. A singl e quali tativ e resul t is repor margaret base on instr ument softw are to deter mine BV posit miriam or negat miriam statu s. The [facility] speci es group tests for C. albic ans, C. tropi calis , C. parap nancy is, C. dubli niens is. Testi ng is perfo rmed using the Trans cript ion Media margaret Ampli ficat ion metho d. Tests for Nasima da glabr damian, Trich omona s vagin nilo, Chlam ydia trach omati s, and Neiss eria gonor rhoea e are also inclu ded in this panel . Not Available [facility] (Lab) [address] [facility], [place], [address], 06/23/2024 07:51:45 04/03/19 25 04/03/2024 US, obste tric, 2nd or 3rd trime ster No observ ation record ed. [email or web address] [facility] [address], [place], [address], 04/03/2024 13:17:42 04/03/19 25 04/03/2024 US, obste tric, 2nd or 3rd trime ster No observ ation record ed. [email or web address] [facility] [address], [place], [address], 04/03/2024 14:08:09 Result Notes None recorded. Problems Name Problem SNOMED Code Status Onset Date Resolution Date Notes Provider Name and Address Organization Details Recorded Time Pregnanc y detectio n examinat ion Completed 201609/19/2020 Encounte r for pregnanc y test, result positive ;Recorde d Elsewher e: No Locat ion: [facility] S ource: EHR Manager Internet jamari: N Practi ce ID: 0001 José lable Time: 08:30:00 AM Rosa Corona [facility] [place] - [facility] 14:20:09 Cough [id number] Completed 201709/19/2020 Cough;Re corded Elsewher e: No Locat ion: [facility] S ource: EHR Manager Internet jamari: N Derejeti ce ID: 0001 José lable Time: 05:30:00 PM Rosa casey [facility] 14:20:01 Normal pregnanc y in multigra artur [id number] Completed 201709/19/2020 Encounte r for suprvsn of normal pregnanc y, third trimeste r;Record ed Elsewher e: No Locat ion: [facility] S ource: EHR Manager Internet jamari: N Derejeti ce ID: 0001 José lable Time: 01:30:00 PM Rosa Corona [facility] 14:20:00 Antenata l screenin g Completed 201709/19/2020 Encounte r for antenata l screenin g for nuchal transluc ency;Pra ctice ID: 0001 Rosa Corona [facility] 14:19:[address] Concept Completed 201809/19/2020 Encntr for general adult medical exam w/o abnormal findings ;Recorde d Elsewher e: No Locat ion: [facility] S ource: EHR Manager Internet jamari: N Derejeti ce ID: 0001 José lable Time: 11:00:00 AM Rosa casey [facility] 14:19:49 Clinical finding Completed 201709/19/2020 Presence of (intraut erine) contrace ptive device;R ecorded Elsewher e: No Locat ion: [facility] S ource: EHR Manager Internet jamari: Jennifer Reyezti ce ID: 0001 José lable Time: 03:30:00 PM Rosa Corona [facility] 14:19:56 Uterine size for dates discrepa ncy Completed 201609/19/2020 Uterine size-frandy e discrepa ncy, first trimeste r;Record ed Elsewher e: No Locat ion: [facility] S ource: EHR Manager Internet jamari: N Practi ce ID: 0001 José lable Time: 09:30:00 AM Rosa casey, [facility] 14:19:35 Educatio n Completed 201709/19/2020 Encounte r for other general counseli ng and advice on contrace ption;Re corded Elsewher e: No [facility] S ource: EHR Manager Internet jamari: N Practi ce ID: 0001 José lable Time: 02:15:00 PM Rosa casey [facility] 14:19:52 Clinical finding Completed 201709/19/2020 Unspecif ied placenta l disorder , third trimeste r;Record ed Elsewher e: No Locat ion: [facility] S ource: EHR Manager Internet jamari: N Practi ce ID: 0001 José lable Time: 09:45:00 AM Rosa casey, [facility] 14:19:39 Gestatio n period, 32 weeks [id number] Completed 201709/19/2020 32 weeks gestatio n of pregnanc y;Record ed Elsewher e: No Locat ion: [facility] S ource: EHR Manager Internet jamari: N Practi ce ID: 0001 José lable Time: 01:30:00 PM Rosa casey [facility] 14:20:11 Acute vaginiti s [id number] Completed 201809/19/2020 Vaginiti s;Record ed Elsewher e: No Locat ion: [facility] S ource: EHR Manager Internet jamari: N Practi ce ID: 0001 José lable Time: 11:15:00 AM [facility] 14:19:44 Gestatio n period, 10 weeks [id number] Completed 201609/19/2020 10 weeks gestatio n of pregnanc y;Practi ce ID: 0001 Rosa casey [facility] 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 14:19:51 Complica tion of pregnanc y, childbir th and/or puerperi [id number] Completed 201709/19/2020 Oth diseases and conditio ns compl preg/chl dbrth;Pr actice ID: 0001 [facility] 14:19:41 Pelvic and perineal pain 580152581 Completed 201709/19/2020 Pelvic and perineal pain;Pra ctice ID: 0001 [facility] 14:19:47 Gestatio n period, 19 weeks [id number] Completed 201709/19/2020 19 weeks gestatio n of pregnanc y;Practi ce ID: 0001 Rosa casey, [facility] 14:20:04 Antenata l screenin g for malforma tion Completed 201709/19/2020 Encounte r for antenata l screenin g for malforma tions;Pr actice ID: 0001 Rosa casey [facility] 14:20:08 Gestatio n period, 20 weeks [id number] Completed 201709/19/2020 20 weeks gestatio n of pregnanc y;Practi ce ID: 0001 Rosa Corona jacinto, [facility] 14:19:33 Clinical finding Completed 201709/19/2020 Unspecif ied placenta l disorder , second trimeste r;Practi ce ID: 0001 Rosa Corona jacinto, [facility] 14:19:37 Gestatio n period, 24 weeks [id number] Completed 201709/19/2020 24 weeks gestatio n of pregnanc y;Practi ce ID: 0001 Rosa Corona jacinto, [facility] 14:19:48 Gestatio n period, 28 weeks [id number] Completed 201709/19/2020 28 weeks gestatio n of pregnanc y;Practi ce ID: 0001 Rosa Corona jacinto, [facility] 14:20:13 Gestatio n period, 36 weeks [id number] Completed 201709/19/2020 36 weeks gestatio n of pregnanc y;Practi ce ID: 0001 Rosa Corona jacinto, [facility] 14:20:05 Finding related to pregnanc y Completed 201709/19/2020 Other placenta l disorder s, third trimeste r;Practi ce ID: 0001 Rosa Corona jacinto, [facility] 14:19:36 Single live from singleto n pregnanc y [id number] Completed 201709/19/2020 Single live ;Pr actice ID: 0001 Rosa Corona jacinto, [facility] 14:19:30 Gestatio n period, 39 weeks [id number] Completed 201709/19/2020 39 weeks gestatio n of pregnanc y;Practi ce ID: 0001 Rosa casey, [facility] 14:20:12 Lochia finding Completed 201709/19/2020 Encounte r for routine postpart um follow-u p;Practi ce ID: 0001 Rosa casey, [facility] 14:19:55 Insertio n of intraute rine contrace ptive device Completed 201709/19/2020 Encounte r for initial prescrip tion of uterin contrace p dev;Prac kyle ID: 0001 Rosa casey, [facility] 14:20:07 Pregnanc y test negative [id number] Completed 201709/19/2020 Encounte r for pregnanc y test, result negative ;Practic e ID: 0001 [facility] 14:19:45 Finding of pattern of menstrua l cycle [id number] Completed 201709/19/2020 Excessiv e and frequent menstrua tion with irregula r cycle;Pr actice ID: 0001 Rosa casey [facility] 14:19:32 Abnormal uterine bleeding [id number] 9100 Completed 201709/19/2020 Other specifie d abnormal uterine and vaginal bleeding ;Recorde d Elsewher e: No [facility] Manager Internet jamari: N Practi ce ID: 0001 José lable Time: 02:30:00 PM Rosa casey [facility] 14:19:59 Mental disorder Completed 201709/19/2020 Unspecif ied mood [affecti ve] disorder ;Recorde d Elsewher e: No Locat ion: [facility] S ource: EHR Manager Internet jamari: N Practi ce ID: 0001 José lable Time: 03:30:00 PM Rosa casey, [facility] 14:19:28 Clinical finding Completed 201709/19/2020 Encounte r for surveill ance of injectab le contrace ptive;Re corded Elsewher e: No Locat ion: [facility] S ource: EHR Manager Internet jamari: N Practi ce ID: 0001 José lable Time: 02:30:00 PM Rosa casey, [facility] 14:19:53 Biliuria [id number] Completed 201709/19/2020 Biliuria ;Recorde d Elsewher e: No Locat ion: [facility] S ource: EHR Manager Internet jamari: N Practi ce ID: 0001 José lable Time: 03:30:00 PM Rosa casey, [facility] 14:20:03 Pregnanc y [id number] Completed 202304/24/2024 PO RUTHERFORD MD [address], [place], [address], [facility] 5 22:25:03 Herpes simplex [id number] Completed Gregory Calderon MD [address], [place], [address], [facility] 4 17:25:36 Anemia [id number] Completed 2023 slowfe 1 tab daily Ramiro Cruz [facility], [facility] 4 12:31:46 Obesity [id number] Completed Gregory Calderon MD [address], [place], [address], [facility] 5 10:51:29 Urinary tract infectio us disease [id number] Completed Gregory Calderon MD [address], [place], [address], [facility] 5 10:52:46 Female steriliz ation Completed Consider ing tubal ligation followin g delivery ; needs papers signed at 32 weeks PO RUTHERFORD MD [address], [place], [address], [facility] 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 5 19:06:51 Problem Notes None recorded. Procedures Surgical History Date Name Laterality Status Provider Name and Address Organization Details Recorded Time 4 Date of Last Pap Smear completed Keyona Gonzales [facility] 04/03/2024 12:11:34 2 SUCTION DILATION & CURETTAGE (SURG) completed Lena De Paz [facility] 05/28/2021 11:00:08 1 IUD Removal completed [facility] [address], [place], [address], [facility] 12/16/2020 10:48:03 Imaging Results None recorded. Procedure Notes None recorded. Medical Equipment None Reported. Allergies No known drug allergies Medications Name Sig Start Date Stop Date Status Note LastModified by Organization Details LastModified Time cyclobenz aprine 10 mg tablet take 1 tablet by oral route 3 times every day 09/19 completed Prescrib ed Elsewher e: No Locat ion: [facility] M odify By: [email or web address] Encounte r DateTime : 08/30/19 18 01:30:00 PM Not Available Not Available Not Available Mirena 21 mcg/24 hr (up to 8 years) 52 mg intrauter ine device Take by intraute rine route. 03/06 completed Not Available Not Available Not Available prednison e 10 mg tablet 02/15 completed Not Available Not Available Not Available cetirizin e 10 mg tablet TAKE 1 TABLET BY MOUTH ONCE A DAY 02/15 completed Not Available Not Available Not Available azithromy johan 250 mg tablet TAKE 2 TABLETS BY MOUTH FOR 1 DAY THEN TAKE 1 TABLET BY MOUTH DAILY FOR 4 DAYS 02/15 completed Not Available Not Available Not Available ibuprofen 800 mg tablet TAKE 1 TABLET BY MOUTH EVERY 6 TO 8 HOURS NEEDED 02/15 completed Not Available Not Available Not Available fluconazo le 150 mg tablet TAKE 1 TABLET BY MOUTH NOW. REPEAT IN 72 HOURS NEEDED active Not Available Not Available No t Available valacyclo vir 1 gram tablet Take 1 tablet every 12 hours by oral route. 02/15 completed Not Available Not Available Not Available prednison e 20 mg tablet TAKE 3 TABLETS BY MOUTH DAILY FOR 7 DAYS 02/15 completed Not Available Not Available Not Available metronida zole 500 mg tablet TAKE 1 TABLET BY MOUTH TWICE DAILY FOR 7 DAYS DIRECTED active Not Available Not Available No t Available phentermi ne 37.5 mg tablet 02/15 completed Not Available Not Available Not Available acyclovir 400 mg tablet TAKE 1 TABLET BY MOUTH EVERY 12 HOURS 04/03 completed Not Available Not Available Not Available valacyclo vir 500 mg tablet take 1 tablet by oral route once daily 09/01 completed Prescrib ed Elsewher e: No Locat ion: [facility] M odify By: henrietta billingsley DateTime : 09/01/19 04:31:25 PM Not Available Not Available Not Available acetamino phen 500 mg tablet TAKE 1 TABLET BY MOUTH EVERY 8 HOURS FOR 10 DAYS active Not Available Not Available No t Available triamcino lone acetonide 0.1 % topical cream APPLY TOPICALL Y TO THE AFFECTED AREA TWICE DAILY FOR 2 WEEKS 02/15 completed Not Available Not Available Not Available Metrogel Vaginal 0.75 % (37.5 mg/5 gram) insert 1 applicat orful by vaginal route every day at bedtime x 5 nights 09/19 completed Prescrib ed Elsewher e: No Locat ion: [facility] odify By: [email or web address] ich Prema unter DateTime : 02/09/20 11:15:00 AM Not Available Not Available Not Available famotidin e 20 mg tablet TAKE 1 TABLET BY MOUTH EVERY 12 HOURS FOR 10 DAYS 02/15 completed Not Available Not Available Not Available Depo-Prov era 150 mg/mL intramusc ular suspensio n Inject 1 mL every 3 months by intramus cular route. 02/18 completed Not Available Not Available Not Available benzonata te 100 mg capsule TAKE 1 CAPSULE BY MOUTH EVERY 6 TO 8 HOURS NEEDED FOR COUGH 02/15 completed Not Available Not Available Not Available promethaz ine 25 mg tablet TAKE 1 TABLET BY MOUTH EVERY 4 TO 6 HOURS NEEDED FOR NAUSEA 05/19 completed Not Available Not Available Not Available docusate sodium 100 mg capsule 06/21 completed Not Available Not Available Not Available clindamyc in 2 % vaginal cream INSERT 1 APPLICAT ORFUL VAGINALL Y EVERY DAY AT BEDTIME FOR 5 DAYS 02/15 completed Not Available Not Available Not Available ibuprofen 600 mg tablet TAKE 1 TABLET BY MOUTH EVERY 6 HOURS NEEDED FOR PAIN 06/21 completed Not Available Not Available Not Available Vitamin D2 1,250 mcg (50,000 unit) capsule take 1 capsule by oral route every week 09/19 completed Prescrib rasta Sung e: No Locat ion: [facility] odify By: [email or web address] Encounte r DateTime : 05/19/19 18 12:50:41 PM Not Available Not Available Not Available norethind lena (contrace ptive) 0.35 mg tablet TAKE 1 TABLET BY MOUTH EVERY DAY active Not Available Not Available No t Available Diflucan 200 mg tablet Take 1 tab PO every other day x 3 doses. 11/13 completed Not Available Not Available Not Available metoclopr amide 10 mg tablet TAKE 1 TABLET BY MOUTH ONCE EVERY 6 HOURS-TA KE 30 MINUTES BEFORE MEALS AND AT BEDTIME 06/21 completed Not Available Not Available Not Available nitrofura ntoin monohydra te/macroc rystals 100 mg capsule TAKE 1 CAPSULE BY MOUTH EVERY 12 HOURS 06/21 completed Not Available Not Available Not Available acyclovir 09/19 completed Not Available Not Available Not Available cyclobenz aprine 10/09 completed Not Available Not Available Not Available 06/21 completed Not Available Not Available Not Available FeroSul 325 mg (65 mg iron) tablet 06/21 completed Not Available Not Available Not Available Gavilax 17 gram/dose oral powder 06/21 completed Not Available Not Available Not Available Lo Loestrin Fe 1 mg-10 mcg (24)/10 mcg (2) tablet Take 1 tablet by oral route every day 05/19 completed Not Available Not Available Not Available Vitamin D2 02/18 completed Not Available Not Available Not Available Estarylla 0.25 mg-0.035 mg tablet TAKE 1 TABLET BY MOUTH EVERY DAY 05/19 completed Not Available Not Available Not Available [place] Fe 04/16 (28) 1 mg-20 mcg (21)/75 mg (7) tablet Take 1 tablet every day by oral route. 06/21 completed Not Available Not Available Not Available COVID-19 test specimen collectio n TEST DIRECTED 10/09 completed Not Available Not Available Not Available Vitals Date Recorded Body height Body mass index (BMI) Body weight Systolic And Diastolic Provider Name and Address Organization Details Last Updated DateTime 04/03/2024 170.82 cm 45.5 kg/m2 378274.56 g 125/75 mm[Hg] [facility] 04/03/2024 12:15:35 Date Recorded Body height Body mass index (BMI) Body weight Systolic And Diastolic Provider Name and Address Organization Details Last Updated DateTime 04/24/2024 170.82 cm 42.9 kg/m2 473319.49 g 125/90 mm[Hg] [facility] 04/24/2024 12:48:51 Date Recorded Body height Body mass index (BMI) Body weight Systolic And Diastolic Provider Name and Address Organization Details Last Updated DateTime 05/22/2024 170.82 cm 43.5 kg/m2 270193.86 g 105/68 mm[Hg] [facility] 05/22/2024 11:28:25 Date Recorded Body height Body mass index (BMI) Body weight Systolic And Diastolic Provider Name and Address Organization Details Last Updated DateTime 06/21/2024 170.82 cm 43.8 kg/m2 193612.33 g 134/93 mm[Hg] Grisel Kelly [facility] 06/21/2024 15:06:45 Social History Question Answer Notes LastModified by Organizat ion Details LastModified Time Tobacco Smoking Status Never Smoker Vera Rockwell [email or web address] [facility] 12/28/2019 13:52:05 Do You Have An Advance Directive? No [email or web address] Information n ot available 04/24/2024 How Many Years Have You Consumed Alcohol? 12 [email or web address] Information not available 04/24/2024 Are You Blind Or Do You Have Difficulty Seeing? No Information n ot available 10/09/2020 What Is Your Level Of Caffeine Consumption? Occasional Information not available 10/09/2020 How Much Tobacco Do You Chew? None [email or web address] Information not available 04/03/2024 In The 14 Days Before Symptom Onset, Have You Had Close Contact With A Laboratory-confirm ed COVID-19 While That Case Was Ill? No [email or web address] Information n ot available 04/03/2024 In The 14 Days Before Symptom Onset, Have You Had Close Contact With A Person Who Is Under Investigation For COVID-19 While That Person Was Ill? No Information not available 04/03/2024 Have You Been To An Area Known To Be High Risk For COVID-19? No [email or web address] Information not available 04/03/2024 Are You Deaf Or Do You Have Serious Difficulty Hearing? No Information not available 10/09/2020 What Type Of Diet Are You Following? REGULAR Information n ot available 10/09/2020 Which Illicit Or Recreational Drugs Have You Used? Marijuana Information not available 10/09/2020 What Is The Highest Grade Or Level Of School You Have Completed Or The Highest Degree You Have Received? AC49942-7 [email or web address] Information not available 04/24/2024 Do You Use Protection During Sex? No Information not available 04/24/2024 Do You Use Your Seat Belt Or Car Seat Routinely? Yes Information not available 10/09/2020 Do You Have Smoke And Carbon Monoxide Detectors In Your Home? Yes Information not available 10/09/2020 How Much Tobacco Do You Smoke? No [email or web address] Information not available 04/03/2024 Do You Use Sunscreen Routinely? Yes Information not available 10/09/2020 Have You Used IV Drugs? No [email or web address] Information not available 04/03/2024 Sex: Unknown Functional Status Question Answer Note LastModified by Organizat ion Details LastModified Time Do you use any illicit or recreational drugs? Yes Information not available 10/09/2020 What is your level of alcohol consumption? Occasional Information not available 10/09/2020 Are you able to walk? 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 Occasional [email or web address] Information not available 04/24/2024 Mental Status Question Answer Note LastModified by Organization D etails LastModified Time Do you feel stressed (tense, restless, nervous, or anxious, or unable to sleep at night)? AC10950-5 Information not available 10/09/2020 Family History Relationship Description Onset Age of this Age Resolved Age Notes LastModified by Organization Details LastModified Time Mother Anemia [email or web address] Not available 13:51:39 Mother Hypertensive disorder [email or web address] Not available 2019 13:52:04 Paternal Grandmother Hypertensive disorder [email or web address] Not available 2019 13:52:04 Maternal Grandmother Hypertensive disorder [email or web address] Not available 2019 13:52:04 Paternal Grandfather Hypertensive disorder [email or web address] Not available 2019 13:52:04 Maternal Grandfather Hypertensive disorder [email or web address] Not available 2019 13:52:04 Medical History Condition Response History of STI Y Polycystic ovary syndrome Y Gynecological History Statement/Question Response Abnormal Pap N Flow Light Date of LMP 06/05/2024 On BCP's at Conception? N Was last menstrual period normal Y STIs/STDs Y Duration of Flow (days) 3 12 Current Control Method None Age at First Child 22 Are cycles usually normal Y Date of Last Colonoscopy Frequency of Cycle (Q days) Most Recent Bone Density Sexually Active? Y Menses Monthly N Age of first menstrual cycle 11 Date of Last Pap Smear 02/16/2024 Sexual Problems? N Desired Control Method None LMP Unknown Obstetrics History GPAL:G 5 P 1 1 3 2 Type Value Full Term 1 Induced 1 Spontaneous 2 Premature 1 Living 2 Total 5 Past Encounters Encounter ID Performer Location Encounter Start Date Encounter Closed Date Diagnosis/Indication Diagnosis SNOMED-CT Code Diagnosis ICD10 Code Diagnosis Note [id number] [facility] [address],[place] [address] 02/19/2020 12:31:01 02/19/2020 13:26:12 Vaginitis 24408692 N76.0 Exam is suspect for yeast. Diflucan sent Vag cx's including std screen sent Will contact with results Time spent in visit is a total of 15 mins with at least 50% of visit consisting of counseling and review of plan of care. [id number] [facility] [address],[place] [address] 10/09/2020 16:05:33 10/10/2020 14:29:20 Gynecologic examination 24702435 Z01.419 Take Calcium with Vitamin D 1200mg daily if not receiving in daily diet. It is strongly advised to have an annual flu shot and up can obtain at most pharmacies . If you have not had a TDap shot in the last 10 years you should obtain one as well. Discussed with patient & provided with informatio n regarding Gardisil vaccine to prevent the 4 strains for HPV that cause cervical cancer if under age 26. Encourage safe sexual practices, to use condoms and limit partners if not already in a monogamous relationsh ip. Do monthly self breast exams. Have mammogram yearly or every other year depending on family history. BRCA testing is now available for patients with strong genetic history of female cancer. If interested contact the office. Engage in daily exercise of low impact aerobic exercise 45-60 minutes 4-5 times weekly. Avoid tobacco and illicit drugs as well as using moderation with alcohol intake less than 1-2 8 oz beverages daily. This lifestyle behavior pattern will lead to less health conditions and longer life span. If BMI greater than 25 weight watchers or dietary consult advised. Patient received above instructio ns, and questions have been answered. If you have any questions please call or respond to this email. Patient was made aware of the patient portal and may obtain a paper copy of today's plan if desired. Pap/STD updated Vaginitis 80384227 N76.0 Suspect BV but possibly STD as has new partner.Wi ll treat BV and await swab results to return[facility] 915412582 Z30.9 Mirena IUD appears to be in place.Plac ed 12/22/[id number] [facility] [address],[place] [address] 11/13/2020 16:00:17 11/13/2020 16:59:12 Venereal disease screening 023418601 Z11.3 KASEY swab sentWill contact with resultsAsy mptomaticN o questions or concerns. Time spent in visit is a total of 15 mins with at least 50% of visit consisting of counseling and review of plan of care.Addit ional precaution fanta measures were taken to minimize potential exposure to the Covid-19 virus during this patient s visit, including available hand mechanical engineering advisor upon arrive, temperatur e check and being asked a series of screening questions. All staff wore face coverings during this encounter, as well as provided additional cleaning and sanitizing of all surfaces, including countertop s, pens, chairs, door handles, light switches, etc, prior to and following the patient s visit. [id number] [facility] [address],[place] [address] 12/16/2020 10:21:22 12/16/2020 11:57:23 Removal of intrauterine device 84924857 Z30.432 She states the symptoms are of new onset. Patient is here due to the approachin g due date or the nature of her IUD and wishes to have it removed. We discussed the timing of the replacemen t with the next bleed or the need to abstain if she no longer has regular cycles. She expressed understand ing. It was explained that she may have bleeding or spotting after the removal of the device today as well. If cannot see the strings of this device we will need to get an US image to make that the device is still in place and not in an unobtainab le position. She expressed understand ing of all the above instructio fanny. [facility] management 566059458 Z30.9 Discussed all control options in great detail. Pt would like to start ocp. She is aware of the risks and benefits. She does not have any medical condition that is contraindi cated with the use of estrogen containing control. Pt will start her pills on the first tuesday following the start of her period. She is aware it is not effective for control the first month. She is also aware of the importance of taking at the same time every day. Encouraged use of condoms as the pill does not protect against STD's. Will return in 3 months for med check. Consent was read and signed. Pt verbalized understand ing. RTO x 3mos med check [id number] Gregory Calderon MD [facility] [address],[place] [address] 03/06/2021 15:07:56 03/06/2021 15:56:32 Oral herpes simplex infection 894131010 B00.2 Bacterial vaginosis 4197 13731 N76.0 This patient is a 25-year-ol d female with recurrent BV and an active herpes outbreak. We will treat every month for 6 months for BV. She will be treated for the at acute herpes infection as well. She will follow up as needed. [id number] Elsie Finney MD [facility] [address],[place] [address] 05/19/2021 10:19:13 05/19/2021 14:22:07 Incomplete miscarriage with delayed or excessive hemorrhage 264890657 O03.1 Retained p roducts of conception 675948868 O72.2 N93.9 [id number] Elsie Finney MD [facility] [address],[place] [address] 05/19/2021 11:01:43 05/19/2021 11:32:29 Retained products of conception 031568531 O72.2 N93.9 [id number] Elsie Finney MD [facility] [address],[place] [address] 05/28/2021 10:05:03 05/28/2021 10:21:16 [id number] Elsie Finney MD [facility] [address],[place] [address] 06/02/2021 16:59:54 06/04/2021 15:23:01 Postoperative visit 726921604 Z09 Contracept ion care management 692722947 Z30.9 [id number] MD Ted Alexis [address],[place] [address] 02/01/2024 11:55:44 02/01/2024 13:09:28 screening 079316171 Z36.87 Z3A.15 [id number] MD Ted Alexis [address],[place] [address] 02/16/2024 16:34:14 02/16/2024 17:39:10 Herpes simplex 11886234 B00.9 Routine an tenatal care 472746966 Z34.90 screening 2437 24222 Z36.89 Gynecologi c examination 60327479 Z01.419 Z11.51 [id number] MD Ted Alexis [address],[place] [address] 03/08/2024 11:23:51 03/08/2024 21:14:07 [id number] MD Ted Alexis [address],[place] [address] 03/30/2024 10:11:21 04/02/2024 07:18:58 Urinary symptoms 123738687 R39.9 [id number] MD Ted Alexis [address],[place] [address] 04/03/2024 10:35:02 04/03/2024 12:08:16 screening for malformation 316238453 Z36.3 Z3A.24 [id number] PO RUTHERFORD MD [facility] [address],[place] [address] 04/03/2024 10:38:49 04/04/2024 09:22:37 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 Patient recovering well, baby still in NICU and needing increased ventilator support2. Discussed contracept ion options. Risks, benefits, and alternativ es reviewed with the patient3. Patient reports increased stress, will follow up in 4 weeks for full PP visit and readdress; patient instructed to call if PPD/PPA develops4. Patient instructed to follow up in 4 weeks [id number] PO RUTHERFORD MD [facility] [address],[place] [address] 05/22/2024 11:15:54 05/22/2024 14:21:12 care 007817461 Z39.2 S/p 6 weeks ago here today for a visit.1. Patient recovering well, baby still in NICU but improving and gaining good weight2. Discussed contracept ion options. Risks, benefits, and alternativ es reviewed with the patient. Patient would like OCPs while deciding when to pursue tubal ligation; r/b/a discussed with patient. Tubal consents signed today3. Patient instructed to follow up for WWE or sooner for tubal ligation if desired [id number] SHAREE Navarro [facility] [address],[place] [address] 06/21/2024 14:53:33 06/21/2024 15:42:33 Venereal disease screening 841343477 Z11.3 Sexually t ransmitted infectious disease 2941215 A64 Contracept ion care management 181216475 Z30.9 Discussed all control options in great detail. Pt would like to start POP. She is aware of the risks and benefits. Pt will start her pills on the first day following the start of her period. She is aware it is not effective for control the first month. She is also aware of the importance of taking at the same time every day. Encouraged use of condoms as the pill does not protect against STI's.BP precaution s discussed, encouraged PCP f/u Vaginitis 83009056 N76.0 suspect BV vs STI on examgc/ct/ trich testing sent, vaginitis panel sentHIV/He p B&C/Syphil is testing ordered per pt requestDis cussed the various types of STIs, related symptoms and the potential consequenc es (including effects on fertility) of STI infections . Reviewed ways to limit exposure and prevention techniques .rx sent for BV, r/b/a reviewed Time spent in visit is a total of 30 mins with at least 50% of visit consisting of counseling and review of plan of care. Health Concerns Section Related Observation LastModified by Organization Detai ls LastModified Time None Recorded Concern Status LastModified by Organization Details LastModified Time None Recorded Advance Directives Directive N: Payers Insurance Date Sequence Insurance Name Policy Number Policy Blank Covered Member ID Blank Member ID Guarantor Name 10/05/2024 1 [facility] ON OR AFTER 09/25/20 (MEDICAID REPLACEMENT - HMO) Eneida Patel [id number] Eneida Patel 02/19/2020 1 *SELF PAY* Dimple Patel 03/08/2024 1 [facility] PRIOR TO 09/25/2020 (MEDICAID REPLACEMENT - HMO) Eneida Patel [id number] Eneida Patel 10/26/2020 PAYMENT PLAN Eneida Patel 03/08/2024 1 [facility] ON OR AFTER 09/25/20 (MEDICAID REPLACEMENT - HMO) Eneida Patel [id number] Eneida Patel 02/25/2021 PAYMENT PLAN Eneida Patel 03/08/2024 1 [place] [facility] Eneida Patel [id number] Eneida Patel Notes Date Note Type Note Provider Name and Address Organization Details Recorded Time 04/24/2024 text/html S/P on 04/11 at 25 weeks gestation after PPROM and spontaneous labor. was complicated by CPAM. Baby was 2 pounds. Patient denies any specific problems since delivery. Baby in [facility] NICU, had to increase vent settings Patient overall feeling well. No bleeding. Bowel and bladder function are normal. Denies any signs or symptoms of depression, however does report increased stress due to baby being in NICU. Recently went back to work on light duty. PO RUTHERFORD MD [address], [place], [address], [facility] 04/24/2024 22:32:41 05/22/2024 text/html S/P on 04/11 at 25 weeks gestation. was complicated by CPAM and PPROM. Complications with delivery: none. Patient denies any specific problems since delivery. Baby doing well, gaining weight in NICU. CPAM small, neonatologists don't anticipate surgery at this time. Patient overall feeling well. Patient is formula feeding without problems. Has not had a period yet. No bleeding. Bowel and bladder function are normal. Pap due 01/2027. Denies any signs or symptoms of depression. Is coping with parenting well. Patient has not been sexually active since delivery. Patient is interested in contraception at this time, would like OCPs but considering tubal ligation. PO RUTHERFORD MD [address], [place], [address], [facility] 05/22/2024 14:13:51 06/21/2024 text/html 28yo presents fo r evaluation of vaginal symptomss/p on 04/11 at 25 weeks gestation. was complicated by CPAM and PPROM. Baby boy doing well, 10 weeks old at [facility] per pt.vaginal d/c and odorsymptoms started 2-3 days agorecently had unprotected IC with new partnerwould like STI testing todaynever started OCP, however would like to start this neg n/v/fneg flu-like symptomsneg pelvic painneg urinary symptoms SHAREE Navarro [address], [place], [address], [facility] 06/21/2024 15:52:32 OBGyn Episode Ob Episode Information Episode Created Date Number of Fetuses Patient Bloodtype Patient rh Status Prepregnancy Weight lbs Domestic Partner Domestic Partner Phone Father Name Spike Machine Operator Status 01/18/20 1 CLOSED Fetus Data First Name Last Name Admitted to NICU Weight (g) Sex Living Outcome Pediatric Complications Fetus ID Race Codes Race Delivery Type , Spontane ous 5610 Alvarado Calculation Initial Alvarado Date Initial Exam Date Initial Exam Provider Initial Ultrasound Date Last Menstrual Period Date Ultra Sound Weeks Gestation 0 Eighteen To Twenty Week Alvarado Update Ultra Sound Date Fundal Height At Umbil Quickening Date Ultra Sound Latest Weeks Gestation Final Alvardao Confirmed By Final Alvarado Confirmed Date Final Alvarado Date Ultra Sound Latest Days Gestation 0 0 Menstrual History Last Menstrual Date Menses Monthly On Bcp Conception Prior Menses Frequency Hcg Plus Date Menarche Onset Age Delivery Information Delivery Date Delivery Type Labor Anesthesia Weeks Gestation Incision Type Labor Labor Length Hrs Delivered By Post Complications Tubal Sterilization Discharge Date Comments 6 Discharge Information Feeding Method Contraceptive Method Maternal HG B and HCT Levels Ob Episode Information Episode Created Date Number of Fetuses Patient Bloodtype Patient rh Status Prepregnancy Weight lbs Domestic Partner Domestic Partner Phone Father Name Spike Machine Operator Status 01/18/20 1 CLOSED Fetus Data First Name Last Name Admitted to NICU Weight (g) Sex Living Outcome Pediatric Complications Fetus ID Race Codes Race Delivery Type Full Term 5612 Vaginal Delivery Alvarado Calculation Initial Alvarado Date Initial Exam Date Initial Exam Provider Initial Ultrasound Date Last Menstrual Period Date Ultra Sound Weeks Gestation 0 Eighteen To Twenty Week Alvarado Update Ultra Sound Date Fundal Height At Umbil Quickening Date Ultra Sound Latest Weeks Gestation Final Alvarado Confirmed By Final Alvarado Confirmed Date Final Alvarado Date Ultra Sound Latest Days Gestation 0 0 Menstrual History Last Menstrual Date Menses Monthly On Bcp Conception Prior Menses Frequency Hcg Plus Date Menarche Onset Age Delivery Information Delivery Date Delivery Type Labor Anesthesia Weeks Gestation Incision Type Labor Labor Length Hrs Delivered By Post Complications Tubal Sterilization Discharge Date Comments 8 39.1 Discharge Information Feeding Method Contraceptive Method Maternal HG B and HCT Levels Ob Episode Information Episode Created Date Number of Fetuses Patient Bloodtype Patient rh Status Prepregnancy Weight lbs Domestic Partner Domestic Partner Phone Father Name Spike Machine Operator Status 01/18/20 1 CLOSED Fetus Data First Name Last Name Admitted to NICU Weight (g) Sex Living Outcome Pediatric Complications Fetus ID Race Codes Race Delivery Type , Spontane ous 5611 Alvarado Calculation Initial Alvarado Date Initial Exam Date Initial Exam Provider Initial Ultrasound Date Last Menstrual Period Date Ultra Sound Weeks Gestation 0 Eighteen To Twenty Week Alvarado Update Ultra Sound Date Fundal Height At Umbil Quickening Date Ultra Sound Latest Weeks Gestation Final Alvarado Confirmed By Final Alvar[place] Confirmed Date Final Alvarado Date Ultra Sound Latest Days Gestation 0 0 Menstrual History Last Menstrual Date Menses Monthly On Bcp Conception Prior Menses Frequency Hcg Plus Date Menarche Onset Age Delivery Information Delivery Date Delivery Type Labor Anesthesia Weeks Gestation Incision Type Labor Labor Length Hrs Delivered By Post Complications Tubal Sterilization Discharge Date Comments 7 Discharge Information Feeding Method Contraceptive Method Maternal HG B and HCT Levels Ob Episode Information Episode Created Date Number of Fetuses Patient Bloodtype Patient rh Status Prepregnancy Weight lbs Domestic Partner Domestic Partner Phone Father Name Spike Machine Operator Status 05/19/19 22 1 CLOSED Fetus Data First Name Last Name Admitted to NICU Weight (g) Sex Living Outcome Pediatric Complications Fetus ID Race Codes Race Delivery Type , Induced 13162 Alvarado Calculation Initial Alvarado Date Initial Exam Date Initial Exam Provider Initial Ultrasound Date Last Menstrual Period Date Ultra Sound Weeks Gestation 0 Eighteen To Twenty Week Alvarado Update Ultra Sound Date Fundal Height At Umbil Quickening Date Ultra Sound Latest Weeks Gestation Final Alvarado Confirmed By Final Alvar[place] Confirmed Date Final Alvar[place] Date Ultra Sound Latest Days Gestation 0 0 Menstrual History Last Menstrual Date Menses Monthly On Bcp Conception Prior Menses Frequency Hcg Plus Date Menarche Onset Age Delivery Information Delivery Date Delivery Type Labor Anesthesia Weeks Gestation Incision Type Labor Labor Length Hrs Delivered By Post Complications Tubal Sterilization Discharge Date Comments 2 Discharge Information Feeding Method Contraceptive Method Maternal HG B and HCT Levels Ob Episode Information Episode Created Date Number of Fetuses Patient Bloodtype Patient rh Status Prepregnancy Weight lbs Domestic Partner Domestic Partner Phone Father Name Spike Machine Operator Status 02/16/20 24 1 O Positive Anthony CLOSED Fetus Data First Name Last Name Admitted to NICU Weight (g) Sex Living Outcome Pediatric Complications Fetus ID Race Codes Race Delivery Type true M true Prematur e CPAM [id number] Vaginal Delivery Problems Problem Notes Problem Name Start Date End Date Resolution Snomed Code Not e Obesity [id number] Female sterilization 93398023 Considering tubal ligation following delivery; needs papers signed at 32 weeks Congenital cystic adenomatoid malformation of lung 643952791 found o n 24 week anatomy US; [facility] referral sent MF referral faxed to [facility] 04/05/24 Herpes simplex 76099077 Anemia 02/20/2024 497532867 slowfe 1 tab daily Urinary tract infectious disease 41416671 Alvarado Calculation Initial Alvarado Date Initial Exam Date Initial Exam Provider Initial Ultrasound Date Last Menstrual Period Date Ultra Sound Weeks Gestation 02/16/2024 02/01/2024 10/17/2023 15 Eighteen To Twenty Week Alvarado Update Ultra Sound Date Fundal Height At Umbil Quickening Date Ultra Sound Latest Weeks Gestation Final Alvarado Confirmed By Final Alvarado Confirmed Date Final Alvarado Date Ultra Sound Latest Days Gestation 0 [email or web address] 02/16/2024 07/24/19 25 0 Pre-angelita Flowsheet Flowsheet Date 02/16/2024 Israel Score Blood Edema Fundus Height Fundus Units Glucose Ketones Leukocytes Nitrite Labor Signs Protein Cervic Dilation Cervic Effacement Cervic Station Type Weight in lbs Pre/Post Dialysis Refused Weight 286.864501642450 BP Diastolic BP Location Tested BP Systolic BP Type 78 L arm 123 sitting Fetus Heart Rate Present A 154 Fetus Movement A Yes Comments this patient is a 28-year-ol d MULTIParous female at 12 weeks' gestation who presents for initial care. She has a history of term vaginal births. Her medical, surgical, obstetric history is unremarkable. She is vaccinated. She was given precautions recommendations for . We talked about vaccines in . Talked about care in detail. She is having genetic testing. She had a normal 12 week ultrasound. To begin routine care. Flowsheet Date 03/08/2024 Israel Score Blood Edema Fundus Height Fundus Units Glucose Ketones Leukocytes Nitrite Labor Signs Protein Cervic Dilation Cervic Effacement Cervic Station Type Weight in lbs Pre/Post Dialysis Refused BP Diastolic BP Location Tested BP Systolic BP Type Fetus Heart Rate Present Fetus Movement Comments Flowsheet Date 03/30/2024 Israel Score Blood Edema Fundus Height Fundus Units Glucose Ketones Leukocytes Nitrite Labor Signs Protein Cervic Dilation Cervic Effacement Cervic Station Type Weight in lbs Pre/Post Dialysis Refused 294.084337313593 BP Diastolic BP Location Tested BP Systolic BP Type 69 L arm 112 sitting Fetus Heart Rate Present A 154 Fetus Movement A Yes Comments presents for urinary symptom s, frequency, urgency, dysuria. Good movement, no cramping, no bleeding, no nausea, No vomiting, no fever/ chills. to treat with Macrobid, given instructions and precautions. Talked about risks, benefits, and alternatives. Flowsheet Date 04/03/2024 Israel Score Blood Edema Fundus Height Fundus Units Glucose Ketones Leukocytes Nitrite Labor Signs Protein Cervic Dilation Cervic Effacement Cervic Station Type Weight in lbs Pre/Post Dialysis Refused BP Diastolic BP Location Tested BP Systolic BP Type Fetus Heart Rate Present Fetus Movement Comments Flowsheet Date 04/03/2024 Israel Score Blood Edema Fundus Height Fundus Units Glucose Ketones Leukocytes Nitrite Labor Signs Protein Cervic Dilation Cervic Effacement Cervic Station neg none Type Weight in lbs Pre/Post Dialysis Refused Weight 293.71389355170 BP Diastolic BP Location Tested BP Systolic BP Type 75 L arm 125 sitting Fetus Heart Rate Present Fetus Movement A Yes Comments Doing well, good movem ent. No cramping or bleeding. Anatomy incomplete today, needs axial spine, heart, and RUE views. Possible CPAM visualized on US today, discussed with patient. Will send referral to [facility] for further evaluation. Discussed GCT and labs for next visit. Patient may be interested in tubal following delivery; will need papers signed at 32 weeks. RTC 4 weeks. Flowsheet Date 04/24/2024 Israel Score Blood Edema Fundus Height Fundus Units Glucose Ketones Leukocytes Nitrite Labor Signs Protein Cervic Dilation Cervic Effacement Cervic Station Type Weight in lbs Pre/Post Dialysis Refused Weight 276.581070390090 BP Diastolic BP Location Tested BP Systolic BP Type 90 L arm 125 sitting Fetus Heart Rate Present Fetus Movement Comments Menstrual History Last Menstrual Date Menses Monthly On Bcp Conception Prior Menses Frequency Hcg Plus Date Menarche Onset Age 0710/17/2023 true Delivery Information Delivery Date Delivery Type Labor Anesthesia Weeks Gestation Incision Type Labor Labor Length Hrs Delivered By Post Complications Tubal Sterilization Discharge Date Comments 5 Sponta neous Regional-Ep idural 25.2 true Discharge Information Feeding Method Contraceptive Method Maternal HG B and HCT Levels
--- OUTSIDE RECORDS SUMMARY | 2024-10-08 01:05 | XMS_ITS | Clinical Summary ---
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[employer] Name Role Phone Unavailable Primary Care Provider Unavailabl e Social History Tobacco Use Types Packs/Day Years Used Date Smoking Tobacco: Never Assessed Comments Unknown Sex and Gender Information Value Date Recorded Sex Assigned at Not on file Legal Sex Female 10:41 AM [employer] Gender Identity Not on file Sexual Orientation Not on file Plan of Treatment Health Maintenance Due Date Last Done Comments DTAP/TDAP/TD VACCINES (1 - Tdap) 2013 HEPATITIS B VACCINES (1 of 3 - 19+ 3-dose series) 2013 HPV/Cotest (21-29) 08/14/2015 HPV/Cotest (30-65) 2024 INFLUENZA VACCINE (#1) 2024 CERVICAL CANCER SCREENING 02/15/2027 PAP SMEAR 02/15/2027 02/16/2024 HPV VACCINES Aged Out No longer eligi ble based on patient's age to complete this topic
--- NOTE | 2024-10-08 10:37 | P.PNAN_ITS ---
Anes - Initial Pre Proc Eval Procedure: Operation Date: 10/08/24 14:00 Proposed Procedures p Bilateral Laparoscopic Salpingectomy - Edmond Montoya MD Date/Time: 10/08/24 10:37 Surgeon: Edmond Montoya MD Pre Op Diagnosis: desires sterilization Patient Data Age: 29 Gender: F Height: 1.73 m Weight: 122.5 kg Allergies Allergy/AdvReac Type Severity Reaction Status Date / Time No Known Allergies Allergy Verified 10/03/24 13:50 Home Medications ?Medication ?Instructions ?Recorded ?Confirmed ?Type metronidazole 500 mg tablet 500 mg PO Q12H #14 tabs 12/27/23 10/03/24 Rx docosahexaenoic acid 200 mg 200 mg PO DAILY #90 caps 12/29/23 10/03/24 Rx capsule ( DHA) acyclovir 400 mg tablet 400 mg PO PRN 10/03/24 10/03/24 History ibuprofen 600 mg tablet 600 mg PO TID PRN pain #30 tabs 10/08/24 Rx Patient hx anesthesia problems: none Family hx anesthesia problems: none Results Review: All pre-operative results and documents have been reviewed as part of the pre-operative evaluation. [facility] Past Medical History Medical History (Updated 10/08/24 @ 11:56 by Edmond Montoya MD) Morbid obesity IUP (intrauterine ), incidental Encounter for removal of intrauterine contraceptive device Surgical History Surgical History H/O dilation and curettage 2 Family History Family History Mother Hypertension Grandparent Lung cancer Social History Social History Smoking status: Never smoker Additional smoking assessment comments: HOOKA Alcohol intake: current Drinks per week: 4 Substance use: current Substance use type: marijuana Last use: APR 11, 2021 SMOKED DAILY Do You Feel Safe in your Home?: Yes Lack of Transportation: No Lack of Food: Never True Current Housing: I Have Housing Concerned About Future Housing: No Difficulty Paying Gas/Electric Bills: No Difficulty Paying for Meds: No Currently Unemployed: No Education: High School Diploma/GED Difficulty w/ Childcare or Family Care: No Living arrangements: with family Occupation/Education: unemployed Gender identity (if verbalized by the patient): Female Sexual Orientation (if Verbalized by the Patient): Straight or Heterosexual Spiritual care concerns: No Anes - Eval Final PreProcedure Day of Procedure 10/08/24 10:37 Patient weight: morbidly obese Heart: regular rate and rhythm Lungs: clear to auscultation Airway: Mallampati scale class II Neurological: alert and oriented Last oral intake: >/= 8 hours ASA classification: III Emergent: no Anesthetic plan: proceed Anesthesia type and monitoring: general ETT and standard monitoring Results Review: All pre-operative results and documents have been reviewed as part of the pre- operative evaluation. Informed Consent: The patient's anesthetic plan and its attendant risks and benefits were discussed with the patient/family/POA. Questions were solicited and answers provided to the satisfaction of the patient/family/POA.
--- NOTE | 2024-10-08 11:54 | PM.IMHP ---
H&P: HPI History of Present Illness Date/Time: 10/08/24 11:54 Chief Complaint: desires sterilization Narrative: Patient is a 29 year old female who presents for laparoscopic bilateral salpingectomy. She has completed her childbearing and desires permanent sterilization. The permanent nature of the procedure was discussed with the patient and she voices understanding that the procedure cannot be reversed. Risks and benefits discussed. Review of Systems Review of Systems: All systems reviewed & are unremarkable except as noted in HPI and below PMFSH Past Medical History Medical History (Updated 10/08/24 @ 11:56 by Edmond Montoya MD) Morbid obesity IUP (intrauterine ), incidental Encounter for removal of intrauterine contraceptive device Surgical History Surgical History H/O dilation and curettage 2 Family History Family History Mother Hypertension Grandparent Lung cancer Social History Social History Smoking status: Never smoker Additional smoking assessment comments: HOOKA Alcohol intake: current Drinks per week: 4 Substance use: current Substance use type: marijuana Last use: APR 11, 2021 SMOKED DAILY Do You Feel Safe in your Home?: Yes Lack of Transportation: No Lack of Food: Never True Current Housing: I Have Housing Concerned About Future Housing: No Difficulty Paying Gas/Electric Bills: No Difficulty Paying for Meds: No Currently Unemployed: No Education: High School Diploma/GED Difficulty w/ Childcare or Family Care: No Living arrangements: with family Occupation/Education: unemployed Gender identity (if verbalized by the patient): Female Sexual Orientation (if Verbalized by the Patient): Straight or Heterosexual Spiritual care concerns: No Meds Home Medications and Allergies Home Medications ?Medication ?Instructions ?Recorded ?Confirmed ?Type metronidazole 500 mg tablet 500 mg PO Q12H #14 tabs 12/27/23 10/03/24 Rx docosahexaenoic acid 200 mg 200 mg PO DAILY #90 caps 12/29/23 10/03/24 Rx capsule ( DHA) acyclovir 400 mg tablet 400 mg PO PRN 10/03/24 10/03/24 History Allergies Allergy/AdvReac Type Severity Reaction Status Date / Time No Known Allergies Allergy Verified 10/03/24 13:50 Exam Const: General: comfortable and no acute distress Eyes: General: appearance normal, both eyes and all related structures Resp: Effort & Inspection: normal respiratory effort Cardio: Rate: regular rate Skin: General skin exam: normal color Psych: Mental Status: mental status grossly normal Assessment and Plan Assessment and plan (1) Encounter for sterilization: Code(s): Z30.2 - Encounter for sterilization Status: Acute Assessment and Plan: - patient desires permanent sterilization; discussed risks and benefits including that this procedure cannot be reversed - patient voices understanding - will proceed with laparoscopic bilateral salpingectomy
--- NOTE | 2024-10-08 12:34 | WPDHPUPDATE1 ---
History and Physical Update Update Date/Time: 10/08/24 12:34 History and Physical has been reviewed, including an updated exam of the patient. There are NO changes in the patient's condition. Risks, benefits, and alternatives have been discussed and questions answered. Patient agrees to proceed with procedure.
[2024-10-08] MEDS: KETOROLAC 15 MG/ML VIAL (*BKC) IV PUSH (12:44)
[2024-10-08] MEDS: LACTATED RINGERS 1,000 ML 30 ML IV CONT (12:44)
[2024-10-08] MEDS: ACETAMINOPHEN 500 MG TABLET 1000 MG PO (12:44)
[2024-10-08 12:53] LABS: BEDSIDEPREGUCG Negative (Negative)
--- NOTE | 2024-10-08 14:11 | S_PTH ---
PATIENT: Eneida Patel LOC: [facility] U#:[id number] AGE/SX: 29/F ROOM: RE10/08/[address]: Edmond Montoya MD : 1995 BED: DIS: 10/08/2024 SPEC #: [id number] RECD: 10/09/24 08:16 STATUS: FRANCISCO REMarybeth #: [id number] DIVYA: 10/08/24 14:[address]: Edmond Montoya DEPT: [facility] Surgical RECD BY: Roxy De La Torre ENTERED: 10/09/24 08:16 SP TYPE: Surgical OTHR DR: UNKNOWN,DOCTOR Tissues: A - Fallopian Tube Bilateral Procedures: Gross and Microscopic Level 2 Hematoxylin and Eosin Stain
--- NOTE | 2024-10-08 14:40 | W.PM.PROC2 ---
Procedure Note - Detailed Date of Procedure 10/08/24 Pre-op Diagnosis desires sterilization Post-op Diagnosis Same Procedure Performed laparoscopic bilateral salpingectomy Surgeon Edmond Montoya MD Anesthesia General Indications desires permanent sterilization Findings normal appearing uterus, bilateral tubes and bilateral ovaries; small left paratubal cyst Description of Procedure With IV fluids infusing, the patient was taken to the operating room. The patient was placed in supine position. General anesthesia with endotracheal intubation was given. A time-out took place. The patient was placed in dorsal lithotomy position using Pete stirrups and she was prepped and draped in the usual sterile fashion. The bladder was drained using a red rubber catheter. A sterile speculum was placed vaginally, the anterior lip of the cervix was grasped with a single-tooth tenaculum and the acorn uterine manipulator was placed without difficulty. The speculum was removed. The surgeon's gloves were changed and attention was turned to the abdomen. A 5 mm incision was made in the umbilicus. Under direct visualization with the scope, the umbilical port was inserted without difficulty. Another two trocars were placed under direct visualization in the left upper and left lower quadrants. The patient was placed in Trendelenburg and inspection of the pelvis noted the above findings. Appropriate pictures were taken. Using the LigaSure device, a left salpingectomy was performed in the usual fashion. Care was taken to avoid the IP ligament. The salpingectomy went smoothly. The same procedure was repeated on the right side. The instruments were all removed from the abdomen and the CO2 gas was allowed to escape. The three skin incisions were reapproximated with 4-0 Polysorb in a subcuticular manner, followed by skin glue. The acorn manipulator and single tooth tenaculum was removed from the uterus and cervix, respectively. The tenaculum sites were hemostatic. All instruments were removed from the vagina. At the end of the case, instrument, sponge and needle counts were correct x 2. The patient was awakened from general anesthesia and was taken to PACU in stable condition. Estimated Blood Loss 5 Pathology Yes Complications No immediate complications Condition Stable Disposition Same day
[2024-10-08] MEDS: fentaNYL CITRATE INJ (*CRX) 100 MCG/2 ML VIAL 25 MCG IV PUSH ×6 (14:52→15:16)
[2024-10-08] MEDS: oxyCODONE HCL (*CRX) 5 MG TAB IR PO (15:45)
== END 2024-10-08 16:23 | disposition home or self-care (01) ==
PROVIDERS: Visit Provider Obstetrics & Gynecology
PROC: (CPT 49320; principal; 2024-10-08 14:00)
DX: Z30.2 Encounter for sterilization (principal); N83.8 Other noninflammatory disorders of ovary, fallopian tube and broad ligament
CPT/HCPCS: 58661; 88302; A9270; J1100; J1885; J2003; J2250; J2405; J2704; J3010; J7120